=== PATIENT | male | born 1945 | race African-American/Black ===

== ENCOUNTER 2017-06-28 09:57 | Emergency (ER) | payer OTHER ==
[~2017-06-28] VITALS: Ht 175.3 cm; Wt 76.0 kg
[~2017-06-28 09:57] MED LIST: ALBU6.7H INH; LISI40TA PO; SLOW50TA PO
[2017-06-28 09:59] VITALS: BP 184/112; PULSE 108; RESP 15; TEMP 99.4; O2SAT 95
--- NOTE | 2017-06-28 11:12 | PD ---
HPI . right leg pain Chief Complaint: Pain: Acute or Chronic Time Seen by Provider: 11:12 Travel History International Travel<30 days: No Contact w/Intl Traveler<30days: No Traveled to known affect area: No History of Present Illness HPI 71 yr old male with HTN and DM [facility]. Patient says he has been experiencing pain in his right leg for over 2 weeks, however the pain has been worsening over the past few days. PFSH Past Medical History Cancer: Yes Cardiovascular Problems: Yes Diabetes: Yes Hypertension: Yes Reproductive: Yes (PROSTATE CA) Past Surgical History Other Surgery: Yes (PROSTATECTOMY) Social History Alcohol Use: Yes (OCCASIONALY) Tobacco Use: No Allergies-Medications (Allergen,Severity, Reaction): Coded Allergies: No Known Allergies (Verified , 06/28/17) Reported Meds & Prescriptions Reported Meds & Active Scripts Active Tramadol (Tramadol HCl) 50 Mg Tab 50 Mg PO Q8H PRN Reported Aspirin 81 Mg Chew 81 Mg CHEW DAILY Amlodipine (Amlodipine Besylate) 5 Mg Tab 5 Mg PO DAILY Lantus Inj (Insulin Glargine) 1,000 Unit/10 Ml Vial 30 Units SQ HS Review of Systems General / Constitutional: No: Fever Eyes: No: Visual changes HENT: No: Headaches Cardiovascular: No: Chest Pain or Discomfort Respiratory: No: Shortness of Breath Gastrointestinal: No: Abdominal Pain Genitourinary: No: Dysuria Musculoskeletal: Positive: Pain (right leg pain) Skin: No Rash Neurologic: No: Weakness Psychiatric: No: Depression Endocrine: No: Polydipsia Hematologic/Lymphatic: No: Easy Bruising Physical Exam Narrative GENERAL: AAO x 3, no acute distress, Well-nourished, well-developed patient. SKIN: Warm and dry. No visible rashes or bruising. HEAD: Normocephalic and atraumatic. EYES: No scleral icterus. No injection or drainage. ENT: No nasal drainage noted. Mucous membranes pink. Airway patent. NECK: Supple, trachea midline. No JVD. CARDIOVASCULAR: Regular rate and rhythm without murmurs, gallops, or rubs. RESPIRATORY: Breath sounds equal bilaterally. No accessory muscle use. No rhonchi or rales. GASTROINTESTINAL: Abdomen soft, non-tender, nondistended. EXTREMITIES: No cyanosis or edema. palpable mass in right groin that is tender to touch and firm, right leg moves normally with passive ROM. no edema. BACK: No obvious deformity. No CVA tenderness. 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 b/l, UE and LE 5/5, no focal deficits PSYCH: AAO x 3, flat affect Data Data Last Documented VS Vital Signs Date Time Temp Pulse Resp B/P (MAP) Pulse Ox O2 Delivery O2 Flow Rate FiO2 06/28/17 12:40 06/28/17 12:38 75 16 96 06/28/17 09:59 99.4 Orders Orders Hip, Uni(Ap&Lat) W Ap Pelvis (06/28/17 11:17) Complete Blood Count With Diff (06/28/17 11:17) Basic Metabolic Panel (Bmp) (06/28/17 11:17) Creatine Kinase (Cpk) (06/28/17 11:17) Us Leg Venous Doppler (06/28/17 11:17) Ketorolac Inj (Toradol Inj) (06/28/17 12:00) Labs Laboratory Tests Test 06/28/17 11:30 White Blood Count 13.9 TH/MM3 Red Blood Count 5.36 MIL/MM3 Hemoglobin 14.4 GM/DL Hematocrit 44.5 % Mean Corpuscular Volume 83.1 FL Mean Corpuscular Hemoglobin 26.9 PG Mean Corpuscular Hemoglobin Concent 32.4 % Red Cell Distribution Width 13.8 % Platelet Count 322 TH/MM3 Mean Platelet Volume 9.1 FL Neutrophils (%) (Auto) 85.7 % Lymphocytes (%) (Auto) 7.9 % Monocytes (%) (Auto) 6.1 % Eosinophils (%) (Auto) 0.2 % Basophils (%) (Auto) 0.1 % Neutrophils # (Auto) 12.0 TH/MM3 Lymphocytes # (Auto) 1.1 TH/MM3 Monocytes # (Auto) 0.9 TH/MM3 Eosinophils # (Auto) 0.0 TH/MM3 Basophils # (Auto) 0.0 TH/MM3 CBC Comment AUTO DIFF Differential Total Cells Counted 100 Neutrophils % (Manual) 73 % Band Neutrophils % 10 % Lymphocytes % 11 % Monocytes % 6 % Neutrophils # (Manual) 11.5 TH/MM3 Differential Comment FINAL DIFF MANUAL Platelet Estimate NORMAL Platelet Morphology Comment NORMAL Blood Urea Nitrogen 18 MG/DL Creatinine 1.26 MG/DL Random Glucose 232 MG/DL Calcium Level 9.4 MG/DL Sodium Level 133 MEQ/L Potassium Level 3.6 MEQ/L Chloride Level 97 MEQ/L Carbon Dioxide Level 27.5 MEQ/L Anion Gap 9 MEQ/L Estimat Glomerular Filtration Rate 68 ML/MIN Total Creatine Kinase 180 U/L MDM Medical Decision Making Medical Screen Exam Complete: Yes Emergency Medical Condition: Yes Medical Record Reviewed: Yes Differential Diagnosis OA, RA, less likely hip fracture, sciatica, DVT, Narrative Course 71-year-old here with right leg pain. On examination there are no gross abnormality is. I have ordered a Doppler to rule out DVT. Also checked an x-ray to rule out any type of fracture in the hip as this is where most of his pain is. He reported some generalized aches and pains so I ordered a CK. Last Impressions Lower Extremity Ultrasound 06/28/17 1117 Signed Impressions: Service Date/Time: Wednesday, June 28, 2017 11:30 - CONCLUSION: 1. No evidence for DVT. 2. Not mentioned above an area of patient discomfort right groin region is a heterogeneous 5.9 x 4.5 x 4 3 cm mixed echotexture mass without increased blood flow on color Doppler imaging. A solid mass versus complex fluid collection may have this appearance. Homero Mcdowell MD Laboratory Tests Test 06/28/17 11:30 White Blood Count 13.9 TH/MM3 Red Blood Count 5.36 MIL/MM3 Hemoglobin 14.4 GM/DL Hematocrit 44.5 % Mean Corpuscular Volume 83.1 FL Mean Corpuscular Hemoglobin 26.9 PG Mean Corpuscular Hemoglobin Concent 32.4 % Red Cell Distribution Width 13.8 % Platelet Count 322 TH/MM3 Mean Platelet Volume 9.1 FL Neutrophils (%) (Auto) 85.7 % Lymphocytes (%) (Auto) 7.9 % Monocytes (%) (Auto) 6.1 % Eosinophils (%) (Auto) 0.2 % Basophils (%) (Auto) 0.1 % Neutrophils # (Auto) 12.0 TH/MM3 Lymphocytes # (Auto) 1.1 TH/MM3 Monocytes # (Auto) 0.9 TH/MM3 Eosinophils # (Auto) 0.0 TH/MM3 Basophils # (Auto) 0.0 TH/MM3 CBC Comment AUTO DIFF Differential Total Cells Counted 100 Neutrophils % (Manual) 73 % Band Neutrophils % 10 % Lymphocytes % 11 % Monocytes % 6 % Neutrophils # (Manual) 11.5 TH/MM3 Differential Comment FINAL DIFF MANUAL Platelet Estimate NORMAL Platelet Morphology Comment NORMAL Blood Urea Nitrogen 18 MG/DL Creatinine 1.26 MG/DL Random Glucose 232 MG/DL Calcium Level 9.4 MG/DL Sodium Level 133 MEQ/L Potassium Level 3.6 MEQ/L Chloride Level 97 MEQ/L Carbon Dioxide Level 27.5 MEQ/L Anion Gap 9 MEQ/L Estimat Glomerular Filtration Rate 68 ML/MIN Total Creatine Kinase 180 U/L I reviewed all of the findings. I discussed with my attending Dr. Valencia. There is slightly elevated WBC, but likely reactive in nature. I do not suspect infection. He has no complaints of fever, chills, etc. I recommend patient follow up with his primary care provider for outpatient workup. He does have a history of prostate cancer and appears that he may have a mass in his right groin and possible metastatic lesion. I've discussed this with him. Patient and his significant other verbalized understanding and need for further workup. In the meantime I provided him with some tramadol for pain relief. Toradol was given here in the emergency department and patient's pain improved. He was ambulatory prior to discharge. I have provided him with the results of his test for further workup. Patient verbalized understanding of instructions, questions were answered, and thanked me for their care. I advised them if their condition worsens, please return to the nearest emergency room for further care. Diagnosis Primary Impression: Right leg pain Patient Instructions: General Instructions Additional Instructions: Please return to emergency department if your symptoms return or worsen. Follow up with your primary care provider. Take medications as prescribed. Please follow-up with her primary care provider to discuss your test results. I 've provided with a copy of these results. Med/Other Pt SpecificInfo: Prescription(s) given Scripts Tramadol (Tramadol) 50 Mg Tab 50 MG PO Q8H Y for PAIN, #12 TAB 0 Refills Prov: Ulysses Valencia MD 06/28/17 Disposition: 01 DISCHARGE HOME Condition: Stable ReddDina sun FANNY Jun 28, 2017 11:12
[2017-06-28] MEDS ORDERED: LANTUS2P SQ (11:21)
[2017-06-28] MEDS ORDERED: AMLO5TAB2 PO (11:21)
[2017-06-28] MEDS ORDERED: ASPI81CH CHEW (11:21)
[2017-06-28 11:42] LABS: BASOPHIL % 0.1 % (0.0-2.0); EOSINOPHIL % 0.2 % (0.0-4.0); HEMATOCRIT 44.5 % (39.0-51.0); LYMPH % 7.9 % (9.0-44.0); LYMPHOCYTE # 1.1 TH/MM3 (1.0-4.8); MEAN CELL VOLUME 83.1 FL (80.0-100.0); MEAN CORPUSCULAR HEMOGLOBIN 26.9 PG (27.0-34.0); MEAN CORPUSCULAR HGB CONC 32.4 % (32.0-36.0); MONO % 6.1 % (0.0-8.0); NEUT % 85.7 % (16.0-70.0); PLATELET COUNT 322 TH/MM3 (150-450); RED BLOOD COUNT 5.36 MIL/MM3 (4.50-5.90); RED CELL DISTRIBUTION WIDTH 13.8 % (11.6-17.2); WHITE BLOOD COUNT 13.9 TH/MM3 (4.0-11.0)
[2017-06-28 11:44] LABS: HEMO FLAGS AUTO DIFF
[2017-06-28] MEDS ORDERED: KETOROLAC TROMETHAMINE 60 MG/2 ML (IM) VIAL IM ONE (12:00)
--- NOTE | 2017-06-28 12:07 | RADRPT ---
EXAM DATE/TIME: 06/28/2017 11:30 [facility] COMPARISON: No previous studies available for comparison. INDICATIONS : Right leg pain. MEDICAL HISTORY : Hypertension. Glaucoma. CVA. Prostate cancer. Diabetes. SURGICAL HISTORY : Prostatectomy. ENCOUNTER: Initial ACUITY: 2 weeks PAIN SCORE: 3/10 LOCATION: Right leg TECHNIQUE: Venous ultrasound of the leg was performed from the inguinal ligament to the proximal calf. Real-pinky e, color Doppler and spectral tracing, compression and augmentation techniques were used. FINDINGS: There is normal compressibility of the deep venous system from the inguinal region to the proximal ca lf. No echogenic clot is seen in the lumen of the common femoral, femoral, popliteal, and posterior tibial veins. There is a normal response of the venous system to proximal and distal augmentation an d respiration. CONCLUSION: 1. No evidence for DVT. 2. Not mentioned above an area of patient discomfort right groin region is a heterogeneous 5.9 x 4.5 x 4 3 cm mixed echotexture mass without increased blood flow on color Doppler imaging. A solid mass v ersus complex fluid collection may have this appearance. Homero Mcdowell MD on June 28, 2017 at 12:05 Board Certified Radiologist. This report was verified electronically.
[2017-06-28 12:18] LABS: BICARBONATE 27.5 MEQ/L (21.0-32.0); POTASSIUM 3.6 MEQ/L (3.5-5.1)
[2017-06-28 12:21] LABS: BANDS 10 % (0-6); NEUTROPHIL # MANUAL DIFF 11.5 TH/MM3 (1.8-7.7); PLATELET ESTIMATE SMEAR NORMAL (NORMAL); PLATELET MORPHOLOGY NORMAL (NORMAL); POLYS (SEG NEUTROPHILS) 73 % (16-70); SCAN/DIFF FINAL DIFF MANUAL; WBC DIFF SAMPLE 100
--- NOTE | 2017-06-28 12:27 | RADRPT ---
EXAM DATE/TIME: 06/28/2017 12:11 [facility] COMPARISON: No previous studies available for comparison. INDICATIONS : Pain in right hip and groin for 10 days, denies injury MEDICAL HISTORY : Carcinoma, prostatic. diabetic SURGICAL HISTORY : Prostatectomy. ENCOUNTER: Initial ACUITY: 1 week PAIN SCORE: 9/10 LOCATION: Right hip FINDINGS: Numerous surgical clips are present within the pelvis. Vascular calcifications are noted overlying sc rotum. There is [id number] narrowing of both hip joint spaces. 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 No fracture or dislocation. There is sclerosis of the right superior pubic ramus and inferior pubi c ramus which is nonspecific. CONCLUSION: Sclerosis is seen at the right superior and inferior pubic rami. The possibility of a metastatic lesi on is difficult to exclude in this patient with history of prostate cancer. Osteoarthritis is noted. Homero Mcdowell MD on June 28, 2017 at 12:24 Board Certified Radiologist. This report was verified electronically.
[2017-06-28] MEDS ORDERED: TRAM50TA PO (12:30)
[2017-06-28 12:38] VITALS: BP 156/79; PULSE 75; RESP 16; O2SAT 96
[2017-07-28] MEDS ORDERED: DOCU1CAP21 PO (03:46)
[2017-07-28] MEDS ORDERED: ASPI81CH CHEW (03:46)
== END 2017-06-28 12:46 | disposition home or self-care (01) ==
LOC: NEPD 09:57
DX: M79.604 Pain in right leg (principal); M79.1 Myalgia; D72.829 Elevated white blood cell count, unspecified; R93.8 Abnormal findings on diagnostic imaging of other specified body structures; I10 Essential (primary) hypertension; E11.9 Type 2 diabetes mellitus without complications; Z79.4 Long term (current) use of insulin; Z85.46 Personal history of malignant neoplasm of prostate; Z86.79 Personal history of other diseases of the circulatory system
CPT/HCPCS: 73502; 80048; 82550; 85007; 85027; 93971; 96372; 99285; J1885

== ENCOUNTER 2017-06-30 10:58 | Emergency (ER) | payer OTHER ==
[~2017-06-30] VITALS: Ht 172.7 cm; Wt 75.0 kg
[2017-06-30 10:58] VITALS: BP 160/96; PULSE 101; RESP 20; TEMP 99.1; O2SAT 95
[~2017-06-30 10:58] MED LIST changes: +AMLO5TAB2 PO; +ASPI81CH CHEW; +LANTUS2P SQ; +TRAM50TA PO
--- NOTE | 2017-06-30 11:15 | PD ---
Physical Exam Time Seen by Provider: 11:14 Narrative 71 y/o male here with R leg pain, unrelieved with tramadol. Seen here on 06/28 about this issue. Vital signs reviewed. Seen at triage desk. Awaiting bed placement. Data Data Last Documented VS Vital Signs Date Time Temp Pulse Resp B/P (MAP) Pulse Ox O2 Delivery O2 Flow Rate FiO2 06/30/17 10:58 99.1 101 20 160/96 (117) 95 Room Air [facility] Medical Record Reviewed: Yes Supervised Visit with JOSIAS: Nicanor Lord Jun 30, 2017 11:15
[2017-06-30] MEDS ORDERED: PERC5TAB12 PO (11:49)
[2017-06-30] MEDS ORDERED: KETOROLAC TROMETHAMINE 60 MG/2 ML (IM) VIAL IM ONE (12:00)
--- NOTE | 2017-06-30 12:01 | PD ---
HPI . Right leg pain Chief Complaint: Injury Time Seen by Provider: 11:41 Travel History International Travel<30 days: No Contact w/Intl Traveler<30days: No Traveled to known affect area: No History of Present Illness HPI 71-year-old male presents to the emergency department for evaluation of right leg pain. Patient was seen at our facility 2 days ago with the same complaint. During that evaluation the patient had an ultrasound of his right leg, an x- ray of his right leg and blood work. There was no acute findings, however there was evidence of metastatic disease from his prostate cancer. Patient was given instructions at that time to follow up with his primary care. Patient was given a Toradol IM shot and a prescription for tramadol. Patient states these medications were not effective. Patient states nothing about the patient has changed in nature. It is neither worse or better. Patient denies any chest pain, shortness breath, nausea, vomiting, diarrhea, abdominal pain, lightheadedness, cough, fevers or malaise. PFSH Past Medical History Cancer: Yes (prostate ) Cardiovascular Problems: Yes Cerebrovascular Accident: Yes (12/2016) Diabetes: Yes Patient Takes Glucophage: No Diminished Hearing: No Hypertension: Yes Reproductive: Yes (PROSTATE CA) Tetanus Vaccination: < 5 Years Influenza Vaccination: Yes Past Surgical History Other Surgery: Yes (PROSTATECTOMY) Social History Alcohol Use: No Tobacco Use: No Substance Use: No Allergies-Medications (Allergen,Severity, Reaction): Coded Allergies: No Known Allergies (Verified , 06/30/17) Reported Meds & Prescriptions Reported Meds & Active Scripts Active Percocet (Oxycodone-Acetaminophen) 5-325 mg Tab 1-2 Tab PO Q6H PRN Tramadol (Tramadol HCl) 50 Mg Tab 50 Mg PO Q8H PRN Reported Aspirin 81 Mg Chew 81 Mg CHEW DAILY Amlodipine (Amlodipine Besylate) 5 Mg Tab 5 Mg PO DAILY Lantus Inj (Insulin Glargine) 1,000 Unit/10 Ml Vial 30 Units SQ HS Review of Systems Except as stated in HPI: all other systems reviewed are Neg Musculoskeletal: Positive: Pain (right leg ) Physical Exam Narrative GENERAL: Well-nourished well-developed 71-year-old male in no acute distress SKIN: Focused skin assessment warm/dry. HEAD: Atraumatic. Normocephalic. EYES: Pupils equal and round. No scleral icterus. No injection or drainage. ENT: No nasal bleeding or discharge. Mucous membranes pink and moist. NECK: Trachea midline. No JVD. CARDIOVASCULAR: Regular rate and rhythm. No murmur appreciated. RESPIRATORY: No accessory muscle use. Clear to auscultation. Breath sounds equal bilaterally. GASTROINTESTINAL: Abdomen soft, non-tender, nondistended. Hepatic and splenic margins not palpable. MUSCULOSKELETAL: No obvious deformities. No clubbing. No cyanosis. No edema. NEUROLOGICAL: Awake and alert. No obvious cranial nerve deficits. Motor grossly within normal limits. Normal speech. PSYCHIATRIC: Appropriate mood and affect; insight and judgment normal. Data Data Last Documented VS Vital Signs Date Time Temp Pulse Resp B/P (MAP) Pulse Ox O2 Delivery O2 Flow Rate FiO2 06/30/17 11:24 96 18 06/30/17 10:58 99.1 160/96 (117) 95 Room Air Orders Orders Ketorolac Inj (Toradol Inj) (06/30/17 12:00) [facility] Medical Decision Making Medical Screen Exam Complete: Yes Emergency Medical Condition: Yes Medical Record Reviewed: Yes Differential Diagnosis Differential diagnosis include but are not limited to chronic pain exacerbation , DVT, right leg muscle strain, metastatic disease Narrative Course Well nourished well-developed 71-year-old male presents to the emergency department for evaluation of right leg pain. Patient was seen at our facility of 2 days ago with the same complaint. At that time the patient was worked up with an ultrasound of the right leg, x-ray to the right leg and blood work. There are no acute findings. Patient was given an IM injection of Toradol and a prescription to go home with tramadol. The patient is back today because those medications were ineffective to control his pain. Patient will be given another IM injection of Toradol and a prescription for Percocet. Based on symptoms, clinical appearance, vital sign review and physical exam it is not necessary to admit the patient to the hospital or to keep patient in the emergency department for further workup. Patient will be discharged home with instructions to follow up with his primary care regarding concern for his metastatic disease from the findings from his imaging and ultrasound 2 days ago. Diagnosis Primary Impression: Right leg pain Referrals: Primary Care Physician Patient Instructions: General Instructions, Leg Pain (ED) Additional Instructions: Please return to emergency department if your symptoms return or worsen. Follow up with your primary care provider. Take medications as prescribed. Use caution as Percocet his narcotic and can make you drowsy. Do not drink alcohol or drive while using this medication. Med/Other Pt SpecificInfo: Prescription(s) given Scripts Oxycodone-Acetaminophen (Percocet) 5-325 mg Tab 1-2 TAB PO Q6H Y for PAIN, #10 TAB 0 Refills Prov: Vinicius Crespo MD 06/30/17 Disposition: 01 DISCHARGE HOME Condition: Stable Marissa Mcclendon Jun 30, 2017 12:01
[2017-07-28] MEDS ORDERED: DOCU1CAP21 PO (03:46)
[2017-07-28] MEDS ORDERED: ASPI81CH CHEW (03:46)
== END 2017-06-30 12:20 | disposition home or self-care (01) ==
LOC: NEPD 10:58
DX: M79.604 Pain in right leg (principal); E11.9 Type 2 diabetes mellitus without complications; I10 Essential (primary) hypertension; Z79.4 Long term (current) use of insulin; Z85.46 Personal history of malignant neoplasm of prostate; Z86.79 Personal history of other diseases of the circulatory system
CPT/HCPCS: 96372; 99284; J1885

== ENCOUNTER 2017-07-27 21:49 | Observation (INO) | payer MEDICARE, OTHER ==
[~2017-07-27] VITALS: Ht 170.2 cm; Wt 75.0 kg
[~2017-07-27 21:49] MED LIST changes: -ALBU6.7H INH; +ASPI-516 CHEW; -ASPI81CH CHEW; -LISI40TA PO; +PERC5TAB12 PO; -SLOW50TA PO
[2017-07-28 03:29] VITALS: BP 148/85; PULSE 82; RESP 18; TEMP 98.4; O2SAT 98
[2017-07-28] MEDS ORDERED: TIMO0.5S30 EACH EYE (03:46)
[2017-07-28] MEDS ORDERED: ENOX40IN SQ (03:46)
[2017-07-28] MEDS ORDERED: ASPI-516 CHEW (03:46)
[2017-07-28] MEDS ORDERED: LACT1CAP30 PO (03:46)
[2017-07-28] MEDS ORDERED: ATOR20TA15 PO (03:46)
[2017-07-28] MEDS ORDERED: CEFE2INJ2 IV (03:46)
[2017-07-28] MEDS ORDERED: FOLI400T PO (03:46)
[2017-07-28] MEDS ORDERED: DAKI0.12 TOPICAL (03:46)
[2017-07-28] MEDS ORDERED: MAPA325T PO (03:46)
[2017-07-28] MEDS ORDERED: DORZ2SOL RIGHT EYE (03:46)
[2017-07-28] MEDS ORDERED: BRIM0.2S4 EACH EYE (03:46)
[2017-07-28] MEDS ORDERED: DOCU50CA9 PO (03:46)
[2017-07-28] MEDS ORDERED: LANTUS2P SQ (03:46)
[2017-07-28] MEDS ORDERED: LATA0.002 EACH EYE (03:46)
[2017-07-28] MEDS ORDERED: VANC1.252 IV (03:46)
[2017-07-28] MEDS ORDERED: NORC5TAB PO (03:46)
[2017-07-28] MEDS ORDERED: AMLO5TAB2 PO (03:46)
[2017-07-28] MEDS ORDERED: NALOXONE HCL 0.4 MG/ML AMP IV PUSH PRN (04:30)
[2017-07-28 07:31] VITALS: BP 152/81; PULSE 93; RESP 17; TEMP 98.7; O2SAT 96
[2017-07-28] MEDS ORDERED: DEXTROSE 50% IN WATER 50 ML VIAL(D50) IV PUSH PRN (08:15)
[2017-07-28] MEDS ORDERED: GLUCAGON 1 MG/ML VIAL OTHER PRN (08:15)
--- NOTE | 2017-07-28 09:08 | HHI.HP ---
HPI Service [facility] Hospitalists Primary Care Physician Unknown Admission Diagnosis Diagnoses: Chief Complaint: Groin infection Travel History International Travel<30 Days: No Contact w/Intl Traveler <30 Da: No Traveled to Known Affected Are: No History of Present Illness Written by Daniel Tillman, acting as scribe for Dr. Dozier on 07/28/17 at 09:08. This note was transcribed by anders Tillman PA-C. I, Dr. Raffaele Dozier personally performed the history, physical exam, and medical decision making; and confirmed the accuracy of the information in the transcribed note. Authenticated by Dr. Raffaele Dozier on 07/28/17 at 16:52. 71-year-old male with a past medical history of CVA, HTN, HLD, DM, prostate cancer history, glaucoma who was transferred here from [facility]. The patient states he went to the ED here about a month ago and was found to have some masses around his thigh and scrotum. [facility] and was seen by urology with I&D of the peritoneum, 2 pubic masses removed, and drains placed(now removed); perineal infection was thought to be related to retained fragments of previous urethral sling that was removed in 2008. He was transferred to [facility] for treatment of MRSA bacteremia and was treated with IV daptomycin. He was then transferred to [facility] for orthopedic evaluation for possible osteomyelitis of the acetabulum seen on MRI. Orthopedics evaluated the patient at [facility] and determined no need for surgical intervention at the time. The patient was seen by ID and has been on IV vancomycin and cefepime awaiting cultures from [facility]. The PICC line is placed, the patient will likely need 6-8 weeks of IV antibiotics. Per hospital discharge summary the plan was to transfer [place] as this is where the patient lives and to de-escalate IV antibiotics based on culture results. Patient's at bedside state that he is here because he lives in [facility] and the plan is to do IV antibiotics at home, awaiting arrangement. The patient initially presented with right leg and thigh pain from the infection , which she states has improved. He denies any fevers or chills. They do state that he had 2 echocardiograms and a SOMMER and deny any signs of heart infection. Review of Systems Except as stated in HPI: all other systems reviewed are Neg Past Family Social History Past Medical History CVA Hypertension Hyperlipidemia History of prostate cancer in 2000 Diabetes mellitus Glaucoma Past Surgical History Prostate surgery and bladder sling placement and removal Right thigh and perineum drainage tubes placed and removed recently 2 peroneal masses removed recently Reported Medications Reported Meds & Active Scripts Active Percocet (Oxycodone-Acetaminophen) 5-325 mg Tab 1-2 Tab PO Q6H PRN Tramadol (Tramadol HCl) 50 Mg Tab 50 Mg PO Q8H PRN Reported Vanco 1.25 gm/250 ml-0.9% NaCl (Vancomycin/0.9 % Sod Chloride) 1.25 Gram/250 Ml Plast..bag IV BID Timolol Opth Drops 0.5 % Soln 1 Drop EACH EYE BID Dakins Solution Quarter Strength Topical (Sodium Hypochlorite Topical) 0.125% Soln 473 Ml TOPICAL BID Latanoprost Opth Drops (Latanoprost) 0.005% Drops 1 Drop EACH EYE HS Refrigerate until opened. Acidophilus Lactobacilli (Lactobacillus Acidophilus) 500 Million Cell Capsule 1 Cap PO BID Lantus Inj (Insulin Glargine) 1,000 Unit/10 Ml Vial 20 Units SQ HS Folic Acid 0.4 Mg Tab 400 Mcg PO DAILY Enoxaparin Inj (Enoxaparin Sodium) 40 Mg/0.4 Ml Syr 40 Mg SQ DAILY Dorzolamide Opth Drops (Dorzolamide HCl) 2% Soln 1 Drop RIGHT EYE BID Colace Clear (Docusate Sodium) 50 Mg Cap Cap PO BID Cefepime Inj (Cefepime HCl) 2 Gm/100 Ml Bagp 2 Gm IV Q8H Brimonidine Opth Drops (Brimonidine Tartrate) 0.2% Soln 1 Drop EACH EYE TID Atorvastatin (Atorvastatin Calcium) 20 Mg Tab 20 Mg PO HS Aspirin 81 Mg Chew 81 Mg CHEW DAILY Amlodipine (Amlodipine Besylate) 5 Mg Tab 5 Mg PO DAILY Terrell (Hydrocodone-Acetaminophen) 5-325 mg Tab 1 Tab PO Q6H PRN Mapap (Acetaminophen) 325 Mg Tab 325 Mg PO Q4-6H Aspirin 81 Mg Chew 81 Mg CHEW DAILY Amlodipine (Amlodipine Besylate) 5 Mg Tab 5 Mg PO DAILY Lantus Inj (Insulin Glargine) 1,000 Unit/10 Ml Vial 30 Units SQ HS Allergies: Coded Allergies: No Known Allergies (Verified , 06/30/17) Active Ordered Medications Current Medications Medications (Trade) Dose Ordered Sig/Caitlyn Route Start Time Stop Time Status Last Admin (NS Flush) 2 ml UNSCH PRN IV FLUSH 07/28/17 04:30 (NS Flush) 2 ml BID IV FLUSH 07/28/17 09:00 (Narcan Inj) 0.4 mg UNSCH PRN IV PUSH 07/28/17 04:30 (Norvasc) 5 mg DAILY PO 07/28/17 09:00 (Aspirin Chew) 81 mg DAILY CHEW 07/28/17 09:00 (Lipitor) 20 mg HS PO 07/28/17 21:00 (Alphagan 0.2% Opth Soln) 1 drop TID EACH EYE 07/28/17 10:00 (Trusopt 2% Opth Soln) 1 drop BID RIGHT EYE 07/28/17 10:00 (Terrell 5-325 Mg) 1 tab Q6H PRN PO 07/28/17 08:15 (Levemir Inj) 20 units HS SQ 07/28/17 21:00 (Xalatan 0.005% Opth Soln) 1 drop HS EACH EYE 07/28/17 21:00 (Dakin'S 0.125% Soln) 473 ml BID TOPICAL 07/28/17 09:00 UNV (Timoptic 0.5% Opth Soln) 1 drop BID EACH EYE 07/28/17 10:00 (Lactinex) 1 tab BID PO 07/28/17 09:30 (D50w (Vial) Inj) 50 ml UNSCH PRN IV PUSH 07/28/17 08:15 (Glucagon Inj) 1 mg UNSCH PRN OTHER 07/28/17 08:15 (NovoLOG SUPPLEMENTAL SCALE) 1 ACHS SLIDING SCALE SQ 07/28/17 12:00 Family History Cancer, diabetes, high blood pressure Social History Denies alcohol or tobacco use Physical Exam Vital Signs Vital Signs Date Time Temp Pulse Resp B/P (MAP) Pulse Ox O2 Delivery O2 Flow Rate FiO2 07/28/17 07:31 98.7 93 17 152/81 (104) 96 07/28/17 03:29 98.4 82 18 148/85 (106) 98 Physical Exam GENERAL: Well-developed well-nourished. In no acute distress. SKIN: Warm and dry. Open lesion below the scrotum with no signs of infection. Sutures in place on areas of previous drains on the right thigh. HEENT: Normocephalic. Pupils equal and round. Mucous membranes pink and moist. CARDIOVASCULAR: Regular rate and rhythm. No murmur appreciated. RESPIRATORY: No accessory muscle use. Clear to auscultation. Breath sounds equal bilaterally. GASTROINTESTINAL: Abdomen soft, non-tender, nondistended. Bowel sounds x4. MUSCULOSKELETAL: No obvious deformities. Right thigh with no induration, warmth , or tenderness. No clubbing or cyanosis. No edema. NEUROLOGICAL: Awake and alert. No focal neurological deficits. Moves upper and lower extremities spontaneously. Normal speech. PSYCHIATRIC: Appropriate mood and affect; insight and judgment normal. Caprini VTE Risk Assessment Caprini VTE Risk Assessment: Mod/High Risk (score >= 2) Caprini Risk Assessment Model Point Value = 1 Point Value = 2 Point Value = 3 Point Value = 5 Age 41-60 Minor surgery BMI > 25 kg/m2 Swollen legs Varicose veins or History of unexplained or recurrent spontaneous Oral contraceptives or hormone replacement Sepsis (< 1 month) Serious lung disease, including pneumonia (< 1 month) Abnormal pulmonary function Acute myocardial infarction Congestive heart failure (< 1 month) History of inflammatory bowel disease Medical patient at bed rest Age 61-74 Arthroscopic surgery Major open surgery (> 45 min) Laparoscopic surgery (> 45 min) Malignancy Confined to bed (> 72 hours) Immobilizing plaster cast Central venous access Age >= 75 History of VTE Family history of VTE Factor V Leiden Prothrombin [id number] Lupus anticoagulant Anticardiolipin antibodies Elevated serum homocysteine Heparin-induced thrombocytopenia Other congenital or acquired thrombophilia Stroke (< 1 month) Elective arthroplasty Hip, pelvis, or leg fracture Acute spinal cord injury (< 1 month) Prophylaxis Regimen Total Risk Factor Score Risk Level Prophylaxis Regimen 0-1 Low Early ambulation 2 Moderate Order ONE of the following: *Sequential Compression Device (SCD) *Heparin 5000 units SQ BID 3-4 Higher Order ONE of the following medications: *Heparin 5000 units SQ TID *Enoxaparin/Lovenox 40 mg SQ daily (WT < 150 kg, CrCl > 30 mL/min) *Enoxaparin/Lovenox 30 mg SQ daily (WT < 150 kg, CrCl > 10-29 mL/min) *Enoxaparin/Lovenox 30 mg SQ BID (WT < 150 kg, CrCl > 30 mL/min) AND/OR *Sequential Compression Device (SCD) 5 or more Highest Order ONE of the following medications: *Heparin 5000 units SQ TID (Preferred with Epidurals) *Enoxaparin/Lovenox 40 mg SQ daily (WT < 150 kg, CrCl > 30 mL/min) *Enoxaparin/Lovenox 30 mg SQ daily (WT < 150 kg, CrCl > 10-29 mL/min) *Enoxaparin/Lovenox 30 mg SQ BID (WT < 150 kg, CrCl > 30 mL/min) AND *Sequential Compression Device (SCD) Assessment and Plan Assessment and Plan 71-year-old male with a past medical history of CVA, HTN, HLD, DM, prostate cancer history, glaucoma who was transferred here from [facility] after prolonged hospitalization with complex right thigh and perineal infection. S/P right thigh myositis, abscess, right hip septic arthritis and osteomyelitis. History of recent MRSA bacteremia. No report of positive wound cultures. -Attempt to obtain recent culture results -Repeat blood cultures -Patient has been on IV antibiotics with vancomycin and cefepime, continue for now -Consult ID for transition to home IV antibiotics based on culture results -Check labs today Perineal wound: Has been seen by wound care physician at previous hospitalization. -Continue dressings with Dakin solution -Consult palliative senior np -Continue pain control with Terrell Diabetes mellitus: -Continue home Levemir -Monitor Accu-Cheks and cover with SSI as needed Other chronic medical conditions include HTN, HLD, CVA: -Continue home antihypertensives, statin, and aspirin DVT prophylaxis: Lovenox Discussed Condition With Patient with at bedside, Daniel Blackwell Jul 28, 2017 09:08 Eliel Dozier DO Jul 28, 2017 16:53
[2017-07-28] MEDS ORDERED: Vancomycin Consult Pharmacy 1 EA OTHER SCH (09:30)
[2017-07-28] MEDS: DORZOLAMIDE 2% OPTH SOLN 200 DROP/10 ML BTLO RIGHT EYE SCH ×2 (10:38→21:00)
[2017-07-28] MEDS: TIMOLOL MALEATE 0.5% OPHT SOLN 5 ML BTL EACH EYE SCH ×2 (10:38→21:00)
[2017-07-28] MEDS: BRIMONIDINE TARTRATE 0.2% OPHT SOLN 5 ML BTL EACH EYE SCH ×3 (10:38→18:30)
[2017-07-28] MEDS: ASPIRIN 81 MG CHEW TAB CHEW SCH (10:39)
[2017-07-28] MEDS: amLODIPine BESYLATE 5 MG TAB PO SCH (10:40)
[2017-07-28] MEDS: SODIUM CHLORIDE 0.9% FLUSH 10 ML FLUSH IV FLUSH SCH ×2 (10:40→21:38)
[2017-07-28] MEDS: ACETAMINOPHEN/HYDROcodone 325 MG/5 MG TAB PO PRN ×2 (10:40→21:36)
[2017-07-28] MEDS ORDERED: VANCOMYCIN INJ 1,500 MG in SODIUM CHLORID 0.9% 500 ML INJ 500 ML IV ONE (12:00)
[2017-07-28] MEDS ORDERED: CEFEPIME 2000 MG VIAL IV SCH (12:00)
[2017-07-28 12:22] LABS: AUTOMATED NEUTROPHIL # 2.8 TH/MM3 (1.8-7.7); EOSINOPHIL # 0.2 TH/MM3 (0-0.4); EOSINOPHIL % 3.6 % (0.0-4.0); HEMATOCRIT 25.4 % (39.0-51.0); HEMO FLAGS DIFF FINAL; LYMPH % 23.1 % (9.0-44.0); MEAN CELL VOLUME 82.6 FL (80.0-100.0); MEAN CORPUSCULAR HEMOGLOBIN 26.6 PG (27.0-34.0); MEAN CORPUSCULAR HGB CONC 32.3 % (32.0-36.0); MONO % 9.2 % (0.0-8.0); NEUT % 63.1 % (16.0-70.0); PLATELET COUNT 474 TH/MM3 (150-450); RED BLOOD COUNT 3.08 MIL/MM3 (4.50-5.90); RED CELL DISTRIBUTION WIDTH 16.6 % (11.6-17.2); WHITE BLOOD COUNT 4.4 TH/MM3 (4.0-11.0)
[2017-07-28 13:02] LABS: BICARBONATE 26.1 MEQ/L (21.0-32.0); POTASSIUM 3.9 MEQ/L (3.5-5.1)
[2017-07-28] MEDS: LACTOBACILLUS ACIDOPHILUS TAB PO SCH ×2 (13:14→21:35)
[2017-07-28] MEDS: ENOXAPARIN SODIUM 40 MG/0.4 ML SYRINGE SQ SCH (13:15)
[2017-07-28] MEDS: CEFEPIME 2000 MG/NS 100 ML IV SCH ×4 (13:32→21:39)
[2017-07-28] MEDS: INSULIN ASPART SUPPLEMENTAL SCALE SQ SCH ×3 (13:45→21:37)
[2017-07-28] MEDS: SODIUM HYPOCHLORITE 0.125% 500 ML BTL TOPICAL SCH ×2 (18:30→21:38)
[2017-07-28 20:55] VITALS: BP 138/83; PULSE 94; RESP 17; TEMP 98.9; O2SAT 95
[2017-07-28] MEDS ORDERED: INSULIN DETEMIR 100 UNITS/ML VIAL SQ SCH (21:00)
[2017-07-28] MEDS: LATANOPROST 0.005% OPHT SOLN 2.5 ML BTL EACH EYE SCH (21:00)
[2017-07-28] MEDS: ATORVASTATIN 20 MG TAB PO SCH (21:35)
[2017-07-28 23:58] VITALS: BP 145/89; PULSE 85; RESP 17; TEMP 98.9; O2SAT 98
[2017-07-29] MEDS: VANCOMYCIN INJ 1,500 MG in SODIUM CHLORID 0.9% 500 ML INJ 500 ML IV SCH ×2 (03:15→15:38)
[2017-07-29] MEDS: SODIUM CHLORIDE 0.9% FLUSH 10 ML FLUSH IV FLUSH PRN ×2 (03:16→06:15)
[2017-07-29 03:51] VITALS: BP 149/86; PULSE 91; RESP 17; TEMP 98.4; O2SAT 94
[2017-07-29] MEDS: CEFEPIME 2000 MG/NS 100 ML IV SCH ×4 (06:15→14:51)
[2017-07-29 07:24] LABS: AUTOMATED NEUTROPHIL # 1.9 TH/MM3 (1.8-7.7); BASOPHIL # 0.1 TH/MM3 (0-0.2); BASOPHIL % 1.4 % (0.0-2.0); EOSINOPHIL # 0.2 TH/MM3 (0-0.4); EOSINOPHIL % 3.8 % (0.0-4.0); HEMATOCRIT 25.7 % (39.0-51.0); HEMO FLAGS DIFF FINAL; LYMPHOCYTE # 1.6 TH/MM3 (1.0-4.8); MEAN CELL VOLUME 82.3 FL (80.0-100.0); MEAN CORPUSCULAR HEMOGLOBIN 26.7 PG (27.0-34.0); MEAN CORPUSCULAR HGB CONC 32.5 % (32.0-36.0); MONO % 13.3 % (0.0-8.0); NEUT % 44.5 % (16.0-70.0); PLATELET COUNT 444 TH/MM3 (150-450); RED BLOOD COUNT 3.12 MIL/MM3 (4.50-5.90); RED CELL DISTRIBUTION WIDTH 16.9 % (11.6-17.2); WHITE BLOOD COUNT 4.3 TH/MM3 (4.0-11.0)
[2017-07-29 08:05] LABS: BICARBONATE 26.6 MEQ/L (21.0-32.0); POTASSIUM 3.5 MEQ/L (3.5-5.1)
[2017-07-29 08:41] VITALS: BP 137/79; PULSE 92; RESP 22; TEMP 98; O2SAT 99
[2017-07-29] MEDS: BRIMONIDINE TARTRATE 0.2% OPHT SOLN 5 ML BTL EACH EYE SCH ×3 (09:47→18:10)
[2017-07-29] MEDS: TIMOLOL MALEATE 0.5% OPHT SOLN 5 ML BTL EACH EYE SCH ×2 (09:47→21:00)
[2017-07-29] MEDS: DORZOLAMIDE 2% OPTH SOLN 200 DROP/10 ML BTLO RIGHT EYE SCH ×2 (09:47→21:00)
[2017-07-29] MEDS: LACTOBACILLUS ACIDOPHILUS TAB PO SCH (09:48)
[2017-07-29] MEDS: amLODIPine BESYLATE 5 MG TAB PO SCH (09:48)
[2017-07-29] MEDS: ACETAMINOPHEN/HYDROcodone 325 MG/5 MG TAB PO PRN ×2 (09:49→17:10)
[2017-07-29] MEDS: SODIUM CHLORIDE 0.9% FLUSH 10 ML FLUSH IV FLUSH SCH (09:49)
[2017-07-29] MEDS: SODIUM HYPOCHLORITE 0.125% 500 ML BTL TOPICAL SCH (09:49)
[2017-07-29] MEDS: ASPIRIN 81 MG CHEW TAB CHEW SCH (09:49)
[2017-07-29] MEDS: INSULIN ASPART SUPPLEMENTAL SCALE SQ SCH ×4 (09:50→21:00)
[2017-07-29] MEDS: ENOXAPARIN SODIUM 40 MG/0.4 ML SYRINGE SQ SCH (12:06)
[2017-07-29 12:21] VITALS: BP 125/79; PULSE 82; RESP 20; TEMP 97.6; O2SAT 98
--- NOTE | 2017-07-29 13:04 | PD.WCN.NOT ---
Wound Consult Description: Received consult for wound management of R thigh and perineum Communicated with: RODRIGO Cornelius H pod Recommendation: Please continue to pack wound with 1/4 strength dakin's moistened gauze and cover with dry gauze secured with patient's anatomy and briefs. Change dressing BID.Please apply skin protectant to periwound Additional Information: Patient seen in H pod for evaluation of wound management of R thigh and perineum wound. Dressing was applied this morning to perineal area per wound care p. Patient able to turn self to L side for wound assessment. pulled down briefs in place, scrotum was lifted up to reveal gauze packing in place to perineal area.Removed gauze packing to reveal wound that presents with 100% red granulation tissue and scant sero-sanguinous drainage that is without odor. Wound measures ~2.8cm x ~2.4cm x ~0.8cm.Repacked wound with 1/4 strength Dakin' s moistened gauze.Periwound is unremarkable moisture cream is being applied to periwound. R thigh wound presents as a surgical wound that is well approximated with ~5 sutures Periwound is is slightly erythematous.Per patient surgery was done approximately 3 weeks ago on the R groin area. R leg presents with trace edema. Patient will need sutures removed, and recommend to continue wound care of Dakin 's 1/4 strength moistened gauze to wound bed as ordered by patient's out patient wound care physician. Elizabeth Quispe [facility] Jul 29, 2017 13:04
--- NOTE | 2017-07-29 13:17 | HHI.PR ---
Subjective Remarks Follow-up for right sided thigh myositis, abscess, right hip septic arthritis and osteomyelitis, perineum wound. Patient is currently doing well. Resting in bed. No fever or chills. is at bedside. Objective Vitals Vital Signs Date Time Temp Pulse Resp B/P (MAP) Pulse Ox O2 Delivery O2 Flow Rate FiO2 07/29/17 12:21 97.6 82 20 125/79 (94) 98 07/29/17 08:41 98.0 92 22 137/79 (98) 99 07/29/17 03:51 98.4 91 17 149/86 (107) 94 07/28/17 23:58 98.9 85 17 145/89 (107) 98 07/28/17 20:55 98.9 94 17 138/83 (101) 95 I/O 07/28/17 07/28/17 07/28/17 07/29/17 07/29/17 07/29/17 07:00 15:00 23:00 07:00 15:00 23:00 Intake Total 150 ml Output Total 1200 ml 900 ml Balance -1050 ml -900 ml Intake Oral 150 ml Output Urine Total 1200 ml 900 ml # Voids 2 Result Diagram: 07/29/1760407/29/17604 Objective Remarks GENERAL: Alert, oriented 3, NAD. SKIN: Warm and dry. Open lesion below the scrotum with no signs of infection. Sutures in place on areas of previous drains on the right thigh. HEAD: Normocephalic. EYES: No scleral icterus. No injection or drainage. NECK: Supple, trachea midline. No JVD or lymphadenopathy. CARDIOVASCULAR: Regular rate and rhythm without murmurs, gallops, or rubs. RESPIRATORY: Breath sounds equal bilaterally. No accessory muscle use. GASTROINTESTINAL: Abdomen soft, non-tender, nondistended. MUSCULOSKELETAL: No cyanosis, or edema. BACK: Nontender without obvious deformity. No CVA tenderness. Procedures None A/P Assessment and Plan 71-year-old male with a past medical history of CVA, HTN, HLD, DM, prostate cancer history, glaucoma who was transferred here from [facility] after prolonged hospitalization with complex right thigh and perineal infection. S/P right thigh myositis, abscess, right hip septic arthritis and osteomyelitis. History of recent MRSA bacteremia. No report of positive wound cultures. -Attempt to obtain recent culture results -Repeat blood cultures -Patient has been on IV antibiotics with vancomycin and cefepime, continue for now -Consult ID for transition to home IV antibiotics based on culture results -Labs reviewed. Perineal wound: Has been seen by wound care physician at previous hospitalization. -Continue dressings with Dakin solution -Consult trim and burr operator -Continue pain control with [place] Diabetes mellitus: -Continue home Levemir 10 units QHS. -Monitor Accu-Cheks and cover with SSI as needed Other chronic medical conditions include HTN, HLD, CVA: -Continue home antihypertensives, statin, and aspirin DVT prophylaxis: Lovenox Discussed with Dr. Haider. We do have some of the documents from [facility]. We will specifically request records related to microbiology, pathology, imaging, surgery or procedure notes, infectious disease notes and discharge summary as well as admission note. Eliel Dozier DO Jul 29, 2017 1:17 pm
--- NOTE | 2017-07-29 15:15 | PD.ID.CON ---
History of Present Illness Service ID Consult Requested By Reason for Consult Evaluation and Mment of Osteomyelitis right hip, pubuc ramus abscess, abscess right thigh, MRSA bacteremia. Pt transferred from [facility]. Primary Care Physician Unknown Diagnoses: History of Present Illness is a 71 y/o AAM with PMHx of CVA, HTN, HLD, DM, prostate cancer history , glaucoma who was transferred here from [facility]. The patient states he came to the ED here about a month ago and was found to have some masses around his thigh and scrotum. [facility] and was seen by urology with I&D of the peritoneum, 2 pubic masses removed, and drains placed (now removed); perineal infection was thought to be related to retained fragments of previous urethral sling that was removed in 2008. He was transferred to [facility] for treatment of MRSA bacteremia and was treated with IV daptomycin. He was then transferred to [facility] for orthopedic evaluation for possible osteomyelitis of the acetabulum seen on MRI. Orthopedics evaluated the patient at [facility] and determined no need for surgical intervention at the time. The patient was seen by ID and has been on IV vancomycin and cefepime awaiting cultures from [facility]. The PICC line is placed, the patient will likely need 6-8 weeks of IV antibiotics. Per hospital discharge summary the plan was to transfer [place] as this is where the patient lives and to de-escalate IV antibiotics based on culture results. Patient's at bedside state that he is here because he lives in [facility] and the plan is to do IV antibiotics at home, awaiting arrangement. The patient initially presented with right leg and thigh pain from the infection, which she states has improved. He denies any fevers or chills. They do state that he had 2 echocardiograms and a SOMMER and deny any signs of heart infection. Upon review of medical records no microbiology cultures on chart, no ID note in chart. Unsure what cultures were being treated as pt was on Dapto at one point. Would like to know Vanco LINDSAY on MRSA cultures in blood. Gave a list of items needed from outside hospital to help formulate an ID plan. Need Micro, path, radiology, ID notes, discharge notes, procedure or surgery notes if any. Marquise Wallis who has requested these to be obtained from hospitals he has been at. Patient reports a PICC line was placed 2 days prior to his discharge from [facility] hospital. He reports using a walker at baseline prior to all the infectious process started. Evaluation and Mment of Osteomyelitis right hip, pubuc ramus abscess, abscess right thigh, MRSA bacteremia. Pt transferred from [facility]. Review of Systems ROS Limitations: Poor Historian Constitutional: DENIES: Diaphoretic episodes, Fatigue, Fever, Weight gain, Weight loss, Chills, Dizziness, Change in appetite, Night Sweats Endocrine: DENIES: Heat/cold intolerance, Polydipsia, Polyuria, Polyphagia Eyes: DENIES: Blurred vision, Diplopia, Eye inflammation, Eye pain, Vision loss , Photosensitivity, Double Vision Ears, nose, mouth, throat: DENIES: Tinnitus, Hearing loss, Vertigo, Nasal discharge, Oral lesions, Throat pain, Hoarseness, Ear Pain, Running Nose, Epistaxis, Sinus Pain, Toothache, Odynophagia Respiratory: DENIES: Apneas, Cough, Snoring, Wheezing, Hemoptysis, Sputum production, Shortness of breath Cardiovascular: DENIES: Chest pain, Palpitations, Syncope, Dyspnea on Exertion , PND, Lower Extremity Edema, Orthopnea, Claudication Gastrointestinal: DENIES: Abdominal pain, Black stools, Bloody stools, Constipation, Diarrhea, Nausea, Vomiting, Difficulty Swallowing, Anorexia Genitourinary: DENIES: Sexual dysfunction, Urinary frequency, Urinary incontinence, Urgency, Hematuria, Dysuria, Nocturia, Penile Discharge, Testicular Pain, Testicular Swelling Musculoskeletal: DENIES: Joint pain, Muscle aches, Stiffness, Joint Swelling, Back pain, Neck pain Integumentary: DENIES: Abnormal pigmentation, Nail changes, Pruritus, Rash Hematologic/lymphatic: DENIES: Bruising, Lymphadenopathy Immunologic/allergic: DENIES: Eczema, Urticaria Neurologic: DENIES: Abnormal gait, Headache, Localized weakness, Paresthesias, Seizures, Speech Problems, Tremor, Poor Balance Psychiatric: DENIES: Anxiety, Confusion, Mood changes, Depression, Hallucinations, Agitation, Suicidal Ideation, Homicidal Ideation, Delusions Past Family Social History Allergies: Coded Allergies: No Known Allergies (Verified , 06/30/17) Past Medical History CVA Hypertension Hyperlipidemia History of prostate cancer in 2000 Diabetes mellitus Glaucoma Past Surgical History Prostate surgery and bladder sling placement and removal Right thigh and perineum drainage tubes placed and removed recently 2 peroneal masses removed recently Reported Medications I attest I reviewed, obtained or updated patients home meds and current meds. Reported Meds & Active Scripts Active Percocet (Oxycodone-Acetaminophen) 5-325 mg Tab 1-2 Tab PO Q6H PRN Tramadol (Tramadol HCl) 50 Mg Tab 50 Mg PO Q8H PRN Reported Vanco 1.25 gm/250 ml-0.9% NaCl (Vancomycin/0.9 % Sod Chloride) 1.25 Gram/250 Ml Plast..bag IV BID Timolol Opth Drops 0.5 % Soln 1 Drop EACH EYE BID Dakins Solution Quarter Strength Topical (Sodium Hypochlorite Topical) 0.125% Soln 473 Ml TOPICAL BID Latanoprost Opth Drops (Latanoprost) 0.005% Drops 1 Drop EACH EYE HS Refrigerate until opened. Acidophilus Lactobacilli (Lactobacillus Acidophilus) 500 Million Cell Capsule 1 Cap PO BID Lantus Inj (Insulin Glargine) 1,000 Unit/10 Ml Vial 20 Units SQ HS Folic Acid 0.4 Mg Tab 400 Mcg PO DAILY Enoxaparin Inj (Enoxaparin Sodium) 40 Mg/0.4 Ml Syr 40 Mg SQ DAILY Dorzolamide Opth Drops (Dorzolamide HCl) 2% Soln 1 Drop RIGHT EYE BID Colace Clear (Docusate Sodium) 50 Mg Cap Cap PO BID Cefepime Inj (Cefepime HCl) 2 Gm/100 Ml Bagp 2 Gm IV Q8H Brimonidine Opth Drops (Brimonidine Tartrate) 0.2% Soln 1 Drop EACH EYE TID Atorvastatin (Atorvastatin Calcium) 20 Mg Tab 20 Mg PO HS Aspirin 81 Mg Chew 81 Mg CHEW DAILY Amlodipine (Amlodipine Besylate) 5 Mg Tab 5 Mg PO DAILY [place] (Hydrocodone-Acetaminophen) 5-325 mg Tab 1 Tab PO Q6H PRN Mapap (Acetaminophen) 325 Mg Tab 325 Mg PO Q4-6H Aspirin 81 Mg Chew 81 Mg CHEW DAILY Amlodipine (Amlodipine Besylate) 5 Mg Tab 5 Mg PO DAILY Lantus Inj (Insulin Glargine) 1,000 Unit/10 Ml Vial 30 Units SQ HS Active Ordered Medications Current Medications Medications (Trade) Dose Ordered Sig/Caitlyn Route Start Time Stop Time Status Last Admin (NS Flush) 2 ml UNSCH PRN IV FLUSH 07/28/17 04:30 07/29/17 06:15 (NS Flush) 2 ml BID IV FLUSH 07/28/17 09:00 07/29/17 09:49 (Narcan Inj) 0.4 mg UNSCH PRN IV PUSH 07/28/17 04:30 (Norvasc) 5 mg DAILY PO 07/28/17 09:00 07/29/17 09:48 (Aspirin Chew) 81 mg DAILY CHEW 07/28/17 09:00 07/29/17 09:49 (Lipitor) 20 mg HS PO 07/28/17 21:00 07/28/17 21:35 (Alphagan 0.2% Opth Soln) 1 drop TID EACH EYE 07/28/17 10:00 (Trusopt 2% Opth Soln) 1 drop BID RIGHT EYE 07/28/17 10:00 ([place] 5-325 Mg) 1 tab Q6H PRN PO 07/28/17 08:15 07/29/17 09:49 (Xalatan 0.005% Opth Soln) 1 drop HS EACH EYE 07/28/17 21:00 (Dakin'S 0.125% Soln) 500 ml BID TOPICAL 07/28/17 10:00 07/29/17 09:49 (Timoptic 0.5% Opth Soln) 1 drop BID EACH EYE 07/28/17 10:00 (Lactinex) 1 tab BID PO 07/28/17 09:30 07/29/17 09:48 (D50w (Vial) Inj) 50 ml UNSCH PRN IV PUSH 07/28/17 08:15 (Glucagon Inj) 1 mg UNSCH PRN OTHER 07/28/17 08:15 (NovoLOG SUPPLEMENTAL SCALE) 1 ACHS SLIDING SCALE SQ 07/28/17 12:00 07/28/17 21:37 (Lovenox Inj) 40 mg Q24H SQ 07/28/17 11:00 07/29/17 12:06 Pharmacy Profile Note 0 ml @ 0 mls/hr UNSCH OTHER 07/28/17 09:30 Cefepime HCl 2000 mg/Sodium Chloride 100 ml @ 200 mls/hr Q8H IV 07/28/17 14:00 07/29/17 14:51 Vancomycin HCl 1500 mg/Sodium Chloride 515 ml @ 250 mls/hr Q12H IV 07/29/17 03:00 07/29/17 15:38 Miscellaneous Information SPECIFIC LAB TO BE DRAWN:VANCOMYCIN TROUGH DATE TO... ONCE ONCE .XX 07/30/17 02:45 07/30/17 02:46 (Levemir Inj) 10 units HS SQ 07/29/17 21:00 Family History reviewed and NC to current ID problems. Social History Lives in [facility] with . Has no children. Denies alcohol, smoking , no drugs. 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 Physical Exam Vital Signs Vital Signs Date Time Temp Pulse Resp B/P (MAP) Pulse Ox O2 Delivery O2 Flow Rate FiO2 07/29/17 12:21 97.6 82 20 125/79 (94) 98 07/29/17 08:41 98.0 92 22 137/79 (98) 99 07/29/17 03:51 98.4 91 17 149/86 (107) 94 07/28/17 23:58 98.9 85 17 145/89 (107) 98 07/28/17 20:55 98.9 94 17 138/83 (101) 95 Physical Exam GENERAL: thin built AAM, well-developed patient, in no apparent distress. SKIN: No rashes, ecchymoses or lesions. Cool and dry. HEAD: Atraumatic. Normocephalic. No temporal or scalp tenderness. EYES: Pupils equal round and reactive. Extraocular motions intact. No scleral icterus. No injection or drainage. ENT: Nose without bleeding, purulent drainage or septal hematoma. Throat without erythema, tonsillar hypertrophy or exudate. Uvula midline. Airway patent. NECK: Trachea midline. Supple, nontender, no meningeal signs. CARDIOVASCULAR: Regular rate and rhythm without murmurs, gallops, or rubs. RESPIRATORY: Clear to auscultation. Breath sounds equal bilaterally. No wheezes , rales, or rhonchi. GASTROINTESTINAL: Abdomen soft, non-tender, nondistended. MUSCULOSKELETAL: Right thigh with linear scar with sutures on the inner thigh aspect. He has a small opening on the under side of his scrotum with small amount of packing noted. NEUROLOGICAL: Awake and alert. No obvious neuro deficit noted. Psych cooperative PICC site with no e.o infection. Laboratory Laboratory Tests Test 07/29/17 06:05 White Blood Count 4.3 Red Blood Count 3.12 Hemoglobin 8.3 Hematocrit 25.7 Mean Corpuscular Volume 82.3 Mean Corpuscular Hemoglobin 26.7 Mean Corpuscular Hemoglobin Concent 32.5 Red Cell Distribution Width 16.9 Platelet Count 444 Mean Platelet Volume 6.9 Neutrophils (%) (Auto) 44.5 Lymphocytes (%) (Auto) 37.0 Monocytes (%) (Auto) 13.3 Eosinophils (%) (Auto) 3.8 Basophils (%) (Auto) 1.4 Neutrophils # (Auto) 1.9 Lymphocytes # (Auto) 1.6 Monocytes # (Auto) 0.6 Eosinophils # (Auto) 0.2 Basophils # (Auto) 0.1 CBC Comment DIFF FINAL Differential Comment Blood Urea Nitrogen 9 Creatinine 0.63 Random Glucose 56 Calcium Level 8.6 Sodium Level 139 Potassium Level 3.5 Chloride Level 106 Carbon Dioxide Level 26.6 Anion Gap 6 Estimat Glomerular Filtration Rate 151 Date/Time Source Procedure Growth Status 07/28/17 11:47 Blood Peripheral Aerobic Blood Culture - Preliminary NO GROWTH IN 1 DAY Resulted 07/28/17 11:47 Blood Peripheral Anaerobic Blood Culture - Preliminary NO GROWTH IN 1 DAY Resulted Result Diagram: 07/29/1760407/29/17604 Imaging reviewed imaging results from [facility]. Assessment and Plan Assessment and Plan Osteomyelitis of right hip. Abscess of right thigh Pubic ramus abscess MRSA bacteremia at outside hospital. No endocarditis per reports or pt account of ECHO and SOMMER being negative. Prostate cancer PICC in place, placed at [facility]. Recs Continue Cefepime IV Continue Vanco IV (target 15-20) Follow [facility] reports as stated in HPI to formulate an ID plan. Follow clinically. PT/OT evaluation. Mariangel Haider MD Jul 29, 2017 15:15
[2017-07-29 15:58] VITALS: BP 133/81; PULSE 90; RESP 24; TEMP 99; O2SAT 98
[2017-07-29] MEDS ORDERED: INSULIN DETEMIR 100 UNITS/ML VIAL SQ SCH (21:00)
[2017-07-29] MEDS: LATANOPROST 0.005% OPHT SOLN 2.5 ML BTL EACH EYE SCH (21:00)
[2017-07-29 22:02] VITALS: BP 128/78; PULSE 86; RESP 19; TEMP 98.1; O2SAT 97
[2017-07-30] MEDS: SODIUM CHLORIDE 0.9% FLUSH 10 ML FLUSH IV FLUSH SCH ×3 (00:10→21:47)
[2017-07-30] MEDS: LACTOBACILLUS ACIDOPHILUS TAB PO SCH ×3 (00:11→21:47)
[2017-07-30] MEDS: ATORVASTATIN 20 MG TAB PO SCH ×2 (00:11→21:48)
[2017-07-30] MEDS: ACETAMINOPHEN/HYDROcodone 325 MG/5 MG TAB PO PRN ×4 (00:14→22:01)
[2017-07-30] MEDS: SODIUM HYPOCHLORITE 0.125% 500 ML BTL TOPICAL SCH ×3 (00:15→21:48)
[2017-07-30] MEDS: CEFEPIME 2000 MG/NS 100 ML IV SCH ×8 (00:15→21:49)
[2017-07-30 00:31] VITALS: BP 143/83; PULSE 84; RESP 16; TEMP 99; O2SAT 98
[2017-07-30] MEDS ORDERED: PHARMACY ORDERED LAB ONE (02:45)
[2017-07-30] MEDS: VANCOMYCIN INJ 1,500 MG in SODIUM CHLORID 0.9% 500 ML INJ 500 ML IV SCH (03:23)
[2017-07-30 05:24] VITALS: BP 144/84; PULSE 81; RESP 20; TEMP 98.5; O2SAT 95
[2017-07-30] MEDS: INSULIN ASPART SUPPLEMENTAL SCALE SQ SCH ×4 (08:00→21:00)
[2017-07-30] MEDS: BRIMONIDINE TARTRATE 0.2% OPHT SOLN 5 ML BTL EACH EYE SCH ×3 (08:10→18:00)
[2017-07-30] MEDS: DORZOLAMIDE 2% OPTH SOLN 200 DROP/10 ML BTLO RIGHT EYE SCH ×2 (08:10→21:00)
[2017-07-30] MEDS: TIMOLOL MALEATE 0.5% OPHT SOLN 5 ML BTL EACH EYE SCH ×2 (08:10→21:00)
[2017-07-30] MEDS: ASPIRIN 81 MG CHEW TAB CHEW SCH (08:13)
[2017-07-30] MEDS: amLODIPine BESYLATE 5 MG TAB PO SCH (08:14)
[2017-07-30 08:51] VITALS: BP 145/82; PULSE 74; RESP 24; TEMP 98.6; O2SAT 98
--- NOTE | 2017-07-30 09:50 | HHI.PR ---
Subjective Remarks Follow-up for thigh and perineal infections. The patient is doing well today. Sutures are removed from his thigh yesterday and it is feeling better. Discussed with RN, still awaiting records from [facility] regarding culture data. The patient's blood sugars have been low in the mornings, he states it's always been like this when he does not get an evening snack, discussed with RN to ensure we provide one. Objective Vitals Vital Signs Date Time Temp Pulse Resp B/P (MAP) Pulse Ox O2 Delivery O2 Flow Rate FiO2 07/30/17 08:51 98.6 74 24 145/82 (103) 98 07/30/17 08:08 18 07/30/17 05:24 98.5 81 20 144/84 (104) 95 07/30/17 00:31 99.0 84 16 143/83 (103) 98 07/29/17 22:02 98.1 86 19 128/78 (95) 97 07/29/17 15:58 99.0 90 24 133/81 (98) 98 07/29/17 12:21 97.6 82 20 125/79 (94) 98 I/O 07/29/17 07/29/17 07/29/17 07/30/17 07/30/17 07/30/17 07:00 15:00 23:00 07:00 15:00 23:00 Intake Total 150 ml 480 ml Output Total 1200 ml 900 ml 450 ml Balance -1050 ml -900 ml 480 ml -450 ml Intake Oral 150 ml 480 ml Output Urine Total 1200 ml 900 ml 450 ml # Voids 2 6 # Bowel Movements 2 Result Diagram: 07/29/1760407/29/17604 Objective Remarks GENERAL: Well-developed well-nourished. In no acute distress. SKIN: Warm and dry. Open lesion below the scrotum with no signs of infection. Sutures removed from areas of previous drains on the right thigh. HEENT: Normocephalic. Pupils equal and round. Mucous membranes pink and moist. CARDIOVASCULAR: Regular rate and rhythm. No murmur appreciated. RESPIRATORY: No accessory muscle use. Clear to auscultation. Breath sounds equal bilaterally. GASTROINTESTINAL: Abdomen soft, non-tender, nondistended. Bowel sounds x4. MUSCULOSKELETAL: No obvious deformities. Right thigh with no induration, warmth , or tenderness. No clubbing or cyanosis. No edema. NEUROLOGICAL: Awake and alert. No focal neurological deficits. Moves upper and lower extremities spontaneously. Normal speech. PSYCHIATRIC: Appropriate mood and affect; insight and judgment normal. Procedures None A/P Assessment and Plan 71-year-old male with a past medical history of CVA, HTN, HLD, DM, prostate cancer history, glaucoma who was transferred here from [facility] after prolonged hospitalization with complex right thigh and perineal infection. S/P right thigh myositis, abscess, right hip septic arthritis and osteomyelitis. History of recent MRSA bacteremia. No reports available of previous wound cultures. -Repeat blood cultures with NGTD -Patient has been on IV antibiotics with vancomycin and cefepime, continue for now -ID consulted for assistance with transition to home IV antibiotics based on culture results -Continue attempts to obtain recent culture data Perineal wound: Has been seen by wound care physician at previous hospitalization. -Consulted track walker, discussed with, continue local wound care and dressings with Dakin solution -Continue pain control with [place] Diabetes mellitus: With episodes of a.m. hypoglycemia. Patient reports this is because he has not been getting an evening snack. -Evening snack and diabetic diet -Previous on Lantus 30 units at night. Continue to decrease Levemir to 5 units at night for now until a.m. hypoglycemia improves. -Check hemoglobin A1c -Monitor Accu-Cheks and cover with SSI as needed Other chronic medical conditions include HTN, HLD, CVA: -Continue home antihypertensives, statin, and aspirin DVT prophylaxis: Lovenox Discharge Planning Discharge planning pending arrangement of home IV antibiotics. Will need home wound care as well. Case management consulted. Daniel Tillman Jul 30, 2017 09:50
[2017-07-30 12:33] VITALS: BP 154/87; PULSE 87; RESP 22; TEMP 97.6; O2SAT 99
[2017-07-30] MEDS: ENOXAPARIN SODIUM 40 MG/0.4 ML SYRINGE SQ SCH (13:18)
[2017-07-30 15:23] LABS: HEMOGLOBIN A1a 1.7 %; HEMOGLOBIN A1b 1.1 %; HEMOGLOBIN Ao 78.4 %; HEMOGLOBIN F 1.7 %; HEMOGLOBIN LA1C 2.2 %
[2017-07-30] MEDS: VANCOMYCIN 1,000 MG/NS 250 ML IV SCH ×2 (15:38)
[2017-07-30 16:20] VITALS: BP 138/83; PULSE 81; RESP 20; TEMP 97.6; O2SAT 98
[2017-07-30] MEDS: LATANOPROST 0.005% OPHT SOLN 2.5 ML BTL EACH EYE SCH (21:00)
[2017-07-30 21:23] VITALS: BP 131/65; PULSE 64; RESP 18; TEMP 98.1; O2SAT 98
[2017-07-30] MEDS: INSULIN DETEMIR 100 UNITS/ML VIAL SQ SCH (21:48)
[2017-07-31] VITALS: BP 126/68; PULSE 78; RESP 18; TEMP 98; O2SAT 98
[2017-07-31] MEDS: VANCOMYCIN 1,000 MG/NS 250 ML IV SCH ×6 (03:00→15:57)
[2017-07-31 03:24] VITALS: BP 133/82; PULSE 77; RESP 17; TEMP 98.1; O2SAT 98
[2017-07-31] MEDS: VANCOMYCIN INJ 1,500 MG in SODIUM CHLORID 0.9% 500 ML INJ 500 ML IV SCH (04:05)
[2017-07-31 07:30] VITALS: BP 138/81; PULSE 80; RESP 18; TEMP 98.1; O2SAT 98
[2017-07-31] MEDS: CEFEPIME 2000 MG/NS 100 ML IV SCH ×6 (07:45→22:22)
--- NOTE | 2017-07-31 08:31 | HHI.PR ---
Subjective Remarks Follow-up for infections and diabetes. Patient is doing well today. He just woke up and has some pain in his right thigh. He states he always has pain there whenever he wakes up and the pain medicine relieves it. No fever or chills. Blood sugar was much better this morning. Discussed with RN and charge nurse at length, still attempting to obtain records. Discussed with ID yesterday, awaiting records and cultures with LINDSAY, can contact Dr. Haider when these are obtained. Reviewed previous ID note from [facility]. It seems the patient had MRSA bacteremia at [facility] at the end of June for which he has been on vancomycin and had wound culture positive for Pseudomonas at [facility] during early July for which he is on cefepime. It appears ID was awaiting outside cultures at [facility] as well. Objective Vitals Vital Signs Date Time Temp Pulse Resp B/P (MAP) Pulse Ox O2 Delivery O2 Flow Rate FiO2 07/31/17 07:30 98.1 80 18 138/81 (100) 98 07/31/17 03:24 98.1 77 17 133/82 (99) 98 07/31/17 00:00 98.0 78 18 126/68 (87) 98 07/30/17 21:23 98.1 64 18 131/65 (87) 98 07/30/17 16:48 18 07/30/17 16:20 97.6 81 20 138/83 (101) 98 07/30/17 12:33 97.6 87 22 154/87 (109) 99 07/30/17 08:51 98.6 74 24 145/82 (103) 98 I/O 07/30/17 07/30/17 07/30/17 07/31/17 07/31/17 07/31/17 07:00 15:00 23:00 07:00 15:00 23:00 Intake Total 100 ml 490 ml Output Total 750 ml Balance -650 ml 490 ml Intake Oral 240 ml IV Total 100 ml 250 ml Output Urine Total 750 ml # Voids 1 # Bowel Movements 1 Result Diagram: 07/29/1760407/29/17604 Objective Remarks GENERAL: Well-developed well-nourished. In no acute distress. SKIN: Warm and dry. Open lesion below the scrotum with no signs of infection. Sutures removed from areas of previous drains on the right thigh. HEENT: Normocephalic. Pupils equal and round. Mucous membranes pink and moist. CARDIOVASCULAR: Regular rate and rhythm. No murmur appreciated. RESPIRATORY: No accessory muscle use. Clear to auscultation. Breath sounds equal bilaterally. GASTROINTESTINAL: Abdomen soft, non-tender, nondistended. Bowel sounds x4. MUSCULOSKELETAL: No obvious deformities. Right thigh with no induration, warmth , or tenderness. No clubbing or cyanosis. No edema. NEUROLOGICAL: Awake and alert. No focal neurological deficits. Moves upper and lower extremities spontaneously. Normal speech. PSYCHIATRIC: Appropriate mood and affect; insight and judgment normal. Procedures None A/P Assessment and Plan 71-year-old male with a past medical history of CVA, HTN, HLD, DM, prostate cancer history, glaucoma who was transferred here from [facility] after prolonged hospitalization with complex right thigh and perineal infection. S/P right thigh myositis, abscess, right hip septic arthritis and osteomyelitis. History of recent MRSA bacteremia. No reports available of previous wound cultures. -Repeat blood cultures with NGTD -Patient has been on IV antibiotics with vancomycin and cefepime, continue for now -ID consulted for assistance with transition to home IV antibiotics based on culture results -Continue attempts to obtain recent culture data Perineal wound: Has been seen by wound care physician at previous hospitalization. -Consulted galvanizer zinc, discussed with, continue local wound care and dressings with Dakin solution -Continue pain control with [place] Diabetes mellitus: With episodes of a.m. hypoglycemia. Patient reports this is because he has not been getting an evening snack. Insulin decreased and a.m. blood sugar better today. -Evening snack and diabetic diet -Previous on Lantus 30 units at night. Decreased Levemir to 5 units at night for now until a.m. hypoglycemia improves. -Hemoglobin A1c 10.5 -Monitor Accu-Cheks and cover with SSI as needed Other chronic medical conditions include HTN, HLD, CVA: -Continue home antihypertensives, statin, and aspirin DVT prophylaxis: Lovenox Discharge Planning Discharge planning pending arrangement of home IV antibiotics. Will need home wound care as well. Case management consulted. Daniel Tillman Jul 31, 2017 08:31
[2017-07-31] MEDS: LACTOBACILLUS ACIDOPHILUS TAB PO SCH ×2 (08:56→22:17)
[2017-07-31] MEDS: SODIUM CHLORIDE 0.9% FLUSH 10 ML FLUSH IV FLUSH SCH ×2 (08:57→22:19)
[2017-07-31] MEDS: amLODIPine BESYLATE 5 MG TAB PO SCH (08:57)
[2017-07-31] MEDS: ASPIRIN 81 MG CHEW TAB CHEW SCH (08:57)
[2017-07-31] MEDS: ACETAMINOPHEN/HYDROcodone 325 MG/5 MG TAB PO PRN ×3 (08:57→22:18)
[2017-07-31] MEDS: TIMOLOL MALEATE 0.5% OPHT SOLN 5 ML BTL EACH EYE SCH ×2 (08:58→21:00)
[2017-07-31] MEDS: SODIUM HYPOCHLORITE 0.125% 500 ML BTL TOPICAL SCH ×2 (08:58→22:22)
[2017-07-31] MEDS: DORZOLAMIDE 2% OPTH SOLN 200 DROP/10 ML BTLO RIGHT EYE SCH ×2 (08:58→21:00)
[2017-07-31] MEDS: BRIMONIDINE TARTRATE 0.2% OPHT SOLN 5 ML BTL EACH EYE SCH ×3 (08:58→17:20)
[2017-07-31 11:15] VITALS: BP 106/68; PULSE 72; RESP 18; TEMP 98.8; O2SAT 100
[2017-07-31] MEDS: INSULIN ASPART SUPPLEMENTAL SCALE SQ SCH ×3 (12:00→22:21)
[2017-07-31] MEDS: ENOXAPARIN SODIUM 40 MG/0.4 ML SYRINGE SQ SCH ×2 (12:05→12:17)
[2017-07-31 15:02] VITALS: BP 116/65; PULSE 76; RESP 18; TEMP 98.5; O2SAT 98
[2017-07-31 20:01] VITALS: BP 128/75; PULSE 83; RESP 18; TEMP 98.7; O2SAT 97
[2017-07-31] MEDS: LATANOPROST 0.005% OPHT SOLN 2.5 ML BTL EACH EYE SCH (21:00)
[2017-07-31] MEDS: ATORVASTATIN 20 MG TAB PO SCH (22:17)
[2017-07-31] MEDS: INSULIN DETEMIR 100 UNITS/ML VIAL SQ SCH (22:21)
[2017-08-01 00:47] VITALS: BP 127/80; PULSE 71; RESP 18; TEMP 98.1; O2SAT 99
[2017-08-01] MEDS ORDERED: PHARMACY ORDERED LAB ONE ×2 (02:45→14:00)
[2017-08-01] MEDS: VANCOMYCIN 1,000 MG/NS 250 ML IV SCH ×4 (03:01→15:06)
[2017-08-01] MEDS: ACETAMINOPHEN/HYDROcodone 325 MG/5 MG TAB PO PRN ×2 (04:15→18:31)
[2017-08-01] MEDS: CEFEPIME 2000 MG/NS 100 ML IV SCH ×6 (06:33→20:15)
[2017-08-01 07:49] VITALS: BP 128/80; PULSE 76; RESP 16; TEMP 98.7; O2SAT 99
[2017-08-01] MEDS: INSULIN ASPART SUPPLEMENTAL SCALE SQ SCH ×4 (08:00→20:16)
--- NOTE | 2017-08-01 08:26 | HHI.PR ---
Subjective Remarks Follow-up for infections and diabetes. The patient is doing well today. His sugar was 102 this morning. He has no acute complaints. Records obtained from the [facility] which showed sensitivities for MRSA bacteremia, but no LINDSAY available. Records obtained from [facility] did not have any relevant culture data. ID physician there was awaiting cultures from outside facilities. Some records obtained from [facility], but no culture data received from there. There is a note from the hospitalist from there and possibly infectious disease that recommended treatment with cefepime for pseudomonal wound infection. Discussed at length with patient and at bedside as well as the charge nurse, will continue to attempt to obtain culture data from [facility]. Objective Vitals Vital Signs Date Time Temp Pulse Resp B/P (MAP) Pulse Ox O2 Delivery O2 Flow Rate FiO2 08/01/17 07:49 98.7 76 16 128/80 (96) 99 08/01/17 00:47 98.1 71 18 127/80 (96) 99 07/31/17 23:25 14 07/31/17 20:01 98.7 83 18 128/75 (92) 97 07/31/17 15:02 98.5 76 18 116/65 (82) 98 07/31/17 11:15 98.8 72 18 106/68 (81) 100 I/O 07/31/17 07/31/17 07/31/17 08/01/17 08/01/17 08/01/17 07:00 15:00 23:00 07:00 15:00 23:00 Intake Total 840 ml 720 ml Balance 840 ml 720 ml Intake Oral 840 ml 720 ml # Voids 2 2 Result Diagram: 07/29/17 0605 07/31/17 1321 Objective Remarks GENERAL: Well-developed well-nourished. In no acute distress. SKIN: Warm and dry. Open lesion below the scrotum with no signs of infection. Sutures removed from areas of previous drains on the right thigh. CARDIOVASCULAR: Regular rate and rhythm. No murmur appreciated. RESPIRATORY: No accessory muscle use. Clear to auscultation. Breath sounds equal bilaterally. GASTROINTESTINAL: Abdomen soft, non-tender, nondistended. Bowel sounds x4. MUSCULOSKELETAL: No obvious deformities. Right thigh with no induration, warmth , or tenderness. No clubbing or cyanosis. No edema. NEUROLOGICAL: Awake and alert. No focal neurological deficits. Moves upper and lower extremities spontaneously. Normal speech. PSYCHIATRIC: Appropriate mood and affect; insight and judgment normal. Procedures None A/P Assessment and Plan 71-year-old male with a past medical history of CVA, HTN, HLD, DM, prostate cancer history, glaucoma who was transferred here from [facility] after prolonged hospitalization with complex right thigh and perineal infection. S/P right thigh myositis, abscess, right hip septic arthritis and osteomyelitis. History of recent MRSA bacteremia. No reports available of previous wound cultures. -Repeat blood cultures with NGTD -Patient has been on IV antibiotics with vancomycin and cefepime, continue for now -ID consulted for assistance with transition to home IV antibiotics based on culture results -Continue attempts to obtain recent culture data Perineal wound: Has been seen by wound care physician at previous hospitalization. -Consulted pharmacy customer care specialist, discussed with, continue local wound care and dressings with Dakin solution -Continue pain control with [place] Diabetes mellitus: With episodes of a.m. hypoglycemia. Patient reports this is because he has not been getting an evening snack. Insulin decreased and blood sugars better with no hypoglycemia. -Evening snack and diabetic diet -Previous on Lantus 30 units at night. Decreased Levemir to 5 units at night for now until a.m. hypoglycemia improves. -Hemoglobin A1c 10.5 -Monitor Accu-Cheks and cover with SSI as needed Other chronic medical conditions include HTN, HLD, CVA: -Continue home antihypertensives, statin, and aspirin DVT prophylaxis: Lovenox Discharge Planning Discharge planning pending arrangement of home IV antibiotics. Will need home wound care as well. Case management consulted. Daniel Tillman Aug 01, 2017 08:26
[2017-08-01] MEDS: TIMOLOL MALEATE 0.5% OPHT SOLN 5 ML BTL EACH EYE SCH ×2 (09:00→20:16)
[2017-08-01] MEDS: DORZOLAMIDE 2% OPTH SOLN 200 DROP/10 ML BTLO RIGHT EYE SCH ×2 (09:00→20:16)
[2017-08-01] MEDS: BRIMONIDINE TARTRATE 0.2% OPHT SOLN 5 ML BTL EACH EYE SCH ×3 (09:00→17:24)
[2017-08-01] MEDS: LACTOBACILLUS ACIDOPHILUS TAB PO SCH ×2 (09:12→20:15)
[2017-08-01] MEDS: SODIUM HYPOCHLORITE 0.125% 500 ML BTL TOPICAL SCH ×2 (09:13→20:15)
[2017-08-01] MEDS: amLODIPine BESYLATE 5 MG TAB PO SCH (09:13)
[2017-08-01] MEDS: ASPIRIN 81 MG CHEW TAB CHEW SCH (09:13)
[2017-08-01] MEDS: SODIUM CHLORIDE 0.9% FLUSH 10 ML FLUSH IV FLUSH SCH ×2 (09:13→20:16)
[2017-08-01 11:29] VITALS: BP 151/85; PULSE 77; RESP 16; TEMP 99.1; O2SAT 97
[2017-08-01] MEDS: ENOXAPARIN SODIUM 40 MG/0.4 ML SYRINGE SQ SCH (13:55)
--- NOTE | 2017-08-01 14:07 | HHI.FF ---
Face to Face Verification Diagnosis: (1) MRSA bacteremia (2) Perineal abscess (3) DM (diabetes mellitus) Physical Therapy Order: Evaluate and Treat, Improve ambulation, Strength and gait training Home Health Nursing Order: Medical education Signs/symptoms of disease process Diabetic education Medication education-adverse effect Wound care and dressing changes Nursing assessment with vital signs IV medication administration Instructions: Continue daily wound care to perineum and right thigh with quarter strength Dakin's solution moistened gauze to wound bed. I have seen patient Giovanny ElliottJr on 08/01/17. My clinical findings support the need for the requested home health care services because: Limited ability to care for self Infection w/ risk of complications Injectable med education/admin I certify that my clinical findings support that this patient is homebound because: Unsteady gait/balance Need for psychosocial assistance Daniel Tillman Aug 01, 2017 14:07 Marie Villanueva MD Aug 01, 2017 14:12
[2017-08-01 15:04] VITALS: BP 131/75; PULSE 87; RESP 17; TEMP 98.9; O2SAT 98
[2017-08-01] MEDS: ATORVASTATIN 20 MG TAB PO SCH (20:15)
[2017-08-01] MEDS: INSULIN DETEMIR 100 UNITS/ML VIAL SQ SCH (20:16)
[2017-08-01 20:29] VITALS: BP 134/72; PULSE 67; RESP 18; TEMP 98.4; O2SAT 97
[2017-08-02] MEDS: CEFEPIME 2000 MG/NS 100 ML IV SCH ×6 (05:25→21:51)
[2017-08-02] MEDS: ACETAMINOPHEN/HYDROcodone 325 MG/5 MG TAB PO PRN ×3 (05:29→21:49)
[2017-08-02 05:47] VITALS: BP 134/80; PULSE 75; RESP 18; TEMP 98.1; O2SAT 99
--- NOTE | 2017-08-02 07:39 | HHI.DS ---
Discharge Summary Admission Date Jul 28, 2017 at 03:00 Discharge Date: Aug 02, 2017 Admitting Diagnosis (1) Right leg pain ICD Code: M79.604 - Pain in right leg Status: Acute (2) DM (diabetes mellitus) ICD Code: E11.9 - Type 2 diabetes mellitus without complications (3) Hip osteomyelitis ICD Code: M86.9 - Osteomyelitis, unspecified (4) Perineal abscess ICD Code: L02.215 - Cutaneous abscess of perineum (5) MRSA bacteremia ICD Code: R78.81 - Bacteremia (6) Pubic ramus osteomyelitis Procedures None Brief History - From Admission Written by Daniel Tillman, acting as scribe for Dr. Dozier on 07/28/17 at 09:08. This note was transcribed by kirstinibza Tillman PA-C. I, Dr. Raffaele Dozier personally performed the history, physical exam, and medical decision making; and confirmed the accuracy of the information in the transcribed note. Authenticated by Dr. Raffaele Dozier on 07/28/17 at 16:52. 71-year-old male with a past medical history of CVA, HTN, HLD, DM, prostate cancer history, glaucoma who was transferred here from [facility]. The patient states he went to the ED here about a month ago and was found to have some masses around his thigh and scrotum. [facility] and was seen by urology with I&D of the peritoneum, 2 pubic masses removed, and drains placed(now removed); perineal infection was thought to be related to retained fragments of previous urethral sling that was removed in 2008. He was transferred to [facility] for treatment of MRSA bacteremia and was treated with IV daptomycin. He was then transferred to [facility] for orthopedic evaluation for possible osteomyelitis of the acetabulum seen on MRI. Orthopedics evaluated the patient at [facility] and determined no need for surgical intervention at the time. The patient was seen by ID and has been on IV vancomycin and cefepime awaiting cultures from [facility]. The PICC line is placed, the patient will likely need 6-8 weeks of IV antibiotics. Per hospital discharge summary the plan was to transfer [place] as [place] is where the patient lives and to de-escalate IV antibiotics based on culture results. Patient's at bedside state that he is here because he lives in [facility] and the plan is to do IV antibiotics at home, awaiting arrangement. The patient initially presented with right leg and thigh pain from the infection , which she states has improved. He denies any fevers or chills. They do state that he had 2 echocardiograms and a SOMMER and deny any signs of heart infection. CBC/BMP: 07/29/17 0605 08/01/17 0813 Significant Findings Laboratory Tests Test 07/30/17 12:24 07/31/17 13:21 08/01/17 03:03 08/01/17 08:13 Hemoglobin A1c 10.5 % (4.3-6.0) Vancomycin Level Trough 21.9 MCG/ML (5.0-10.0) Test 08/01/17 14:00 Vancomycin Level Trough 22.0 MCG/ML (5.0-10.0) PE at Discharge GENERAL: Well-developed well-nourished. In no acute distress. SKIN: Warm and dry. Open lesion below the scrotum with no signs of infection. Sutures removed from areas of previous drains on the right thigh. CARDIOVASCULAR: Regular rate and rhythm. No murmur appreciated. RESPIRATORY: No accessory muscle use. Clear to auscultation. Breath sounds equal bilaterally. GASTROINTESTINAL: Abdomen soft, non-tender, nondistended. Bowel sounds x4. MUSCULOSKELETAL: No obvious deformities. Right thigh with no induration, warmth , or tenderness. No clubbing or cyanosis. No edema. NEUROLOGICAL: Awake and alert. No focal neurological deficits. Moves upper and lower extremities spontaneously. Normal speech. PSYCHIATRIC: Appropriate mood and affect; insight and judgment normal. Pt update on day of discharge Patient at the margin of the bed. Feels better. No fever or chills. No n/v/d/c. Patient says wounds are healing well. No pain. Feels comfortable to go home. Hospital Course 71-year-old male with a past medical history of CVA, HTN, HLD, DM, prostate cancer history, glaucoma who was transferred here from [facility] after prolonged hospitalization with complex right thigh and perineal infection. S/P right thigh myositis, abscess, right hip septic arthritis and osteomyelitis. History of recent MRSA bacteremia. Reports obtained and reviewed also made available to Dr Haider ID specialist Pubic ramus osteomyelitis (Organisms: PSAE and MRSA vanco LINDSAY <0.5) Hip bone osteomyelitis Scrotum abscess. Infective myositis of right thigh. Prostate cancer -Repeat blood cultures with [facility] -Patient has been on IV antibiotics with vancomycin and cefepime, continue for now -ID consulted for assistance with transition to home IV antibiotics based on culture results -Continue attempts to obtain recent culture data Discharge home on:, Cefepime 2 grams IV q 8 hours Start Treatment: Aug 02, 2017 Stop Treatment: Sep 10, 2017 Vancomycin 1 gram IV q 24 hours Pharmacy to adjust Vanco trough to 15-20 for osteomyelitis. Start Treatment: Aug 02, 2017 Stop Treatment: Sep 10, 2017 Labs as OP: CBC w/diff, Creatinine, CRP, LFT's (Hepatic function test), Vancomycin Trough (target trough 15-20 for osteomyelitis.) Perineal wound: Has been seen by wound care physician at previous hospitalization. -Consulted business manager college or university, discussed with, continue local wound care and dressings with Dakin solution -Continue pain control with S[place] Diabetes mellitus: With episodes of a.m. hypoglycemia. Patient reports this is because he has not been getting an evening snack. Insulin decreased and blood sugars better with no hypoglycemia. -Evening snack and diabetic diet -Previous on Lantus 30 units at night. Decreased Levemir to 5 units at night for now until a.m. hypoglycemia improves. -Hemoglobin A1c 10.5 -Monitor Accu-Cheks and cover with SSI as needed Other chronic medical conditions include HTN, HLD, CVA: -Continue home antihypertensives, statin, and aspirin DVT prophylaxis: Lovenox Discharge Planning Discharge home with home health in stable condition, wound care to follow as well. Cefepime 2 grams IV q 8 hours Start Treatment: Aug 02, 2017 Stop Treatment: Sep 10, 2017 Vancomycin 1 gram IV q 24 hours Pharmacy to adjust Vanco trough to 15-20 for osteomyelitis. Start Treatment: Aug 02, 2017 Stop Treatment: Sep 10, 2017 CBC w/diff, Creatinine, CRP, LFT's (Hepatic function test), Vancomycin Trough ( target trough 15-20 for osteomyelitis.) Pt Condition on Discharge: Stable Discharge Time: > 30 minutes Discharge Instructions DIET: Follow Instructions for: Heart Healthy Diet Activities you can perform: Regular-No Restrictions Follow up Referrals: Appointment for Follow Up - 1 Week [facility] with ID physician at [facility] or [phone] Per RODRIGO Bruno at [facility]. PCP Follow-up - [facility] New Medications: Cefepime Inj (Maxipime Inj) 2 Gram Inj 2 GM IV Q8H for PSAE infective myositis for 42 Days, VIAL 0 Refills Epinephrine Inj (Epinephrine Inj) 1 Mg/Ml (1 Ml) Inj 0.3 MG IV PUSH ONCE PRN for ALLERGIC REACTION, #1 VIAL Epinephrine Inj (Epinephrine Inj) 1 Mg/Ml (1 Ml) Inj 0.3 MG SQ ONCE PRN for ALLERGIC REACTION, #1 VIAL Give with any signs of respiratory distress. Hydrocortisone Inj (Solu-Cortef Inj) 250 Mg/2 Ml Inj 250 MG IV PUSH ONCE PRN for ALLERGIC REACTION, #1 VIAL 0 Refills Give over 30-60 seconds. Vancomycin Inj (Vancomycin Inj) 10 Gram Inj 1200 MG IV DAILY for MRSA bacteremia,myositis,osteo for 42 Days, VIAL Continued Medications: Acetaminophen (Mapap) 325 Mg Tab 325 MG PO Q4-6H, #2 TAB 0 Refills Amlodipine (Amlodipine) 5 Mg Tab 5 MG PO DAILY for Blood Pressure Management, #30 TAB 0 Refills Amlodipine (Amlodipine) 5 Mg Tab 5 MG PO DAILY for Blood Pressure Management, #30 TAB 0 Refills Aspirin (Aspirin) 81 Mg Chew 81 MG CHEW DAILY, TAB 0 Refills Aspirin (Aspirin) 81 Mg Chew 81 MG CHEW DAILY, TAB 0 Refills Atorvastatin (Atorvastatin) 20 Mg Tab 20 MG PO HS for Cholesterol Management, #30 TAB 0 Refills Brimonidine Opth Drops (Brimonidine Opth Drops) 0.2% Soln 1 DROP EACH EYE TID for Intraocular pressure, #1 BOTTLE 0 Refills Docusate Sodium (Colace Clear) 50 Mg Cap CAP PO BID for Constipation Dorzolamide Opth Drops (Dorzolamide Opth Drops) 2% Soln 1 DROP RIGHT EYE BID for Glaucoma, #1 BOTTLE 0 Refills Enoxaparin Inj (Enoxaparin Inj) 40 Mg/0.4 Ml Syr 40 MG SQ DAILY for Blood Clot Prevention, SYRINGE 0 Refills Folic Acid (Folic Acid) 0.4 Mg Tab 400 MCG PO DAILY for Nutritional Supplement, TAB 0 Refills Hydrocodone-Acetaminophen (Sylvania) 5-325 mg Tab 1 TAB PO Q6H PRN for PAIN, TAB 0 Refills Insulin Glargine Inj (Lantus Inj) 1,000 Unit/10 Ml Vial 30 UNITS SQ HS for Blood Sugar Management, VIAL 0 Refills Insulin Glargine Inj (Lantus Inj) 1,000 Unit/10 Ml Vial 20 UNITS SQ HS for Blood Sugar Management, VIAL 0 Refills Lactobacillus Acidophilus (Acidophilus Lactobacilli) 500 Million Cell Capsule 1 CAP PO BID Latanoprost Opth Drops (Latanoprost Opth Drops) 0.005% Drops 1 DROP EACH EYE HS for Glaucoma, #2.5 ML 0 Refills Refrigerate until opened. Oxycodone-Acetaminophen (Percocet) 5-325 mg Tab 1-2 TAB PO Q6H PRN for PAIN, #10 TAB 0 Refills Sodium Hypochlorite Topical (Dakins Solution Quarter Strength Topical) 0.125% Soln 473 ML TOPICAL BID for Infection, ML 0 Refills Timolol Opth Drops (Timolol Opth Drops) 0.5 % Soln 1 DROP EACH EYE BID for Glaucoma, #1 BOTTLE 0 Refills Tramadol (Tramadol) 50 Mg Tab 50 MG PO Q8H PRN for PAIN, #12 TAB 0 Refills Discontinued Medications: Cefepime Inj (Cefepime Inj) 2 Gm/100 Ml Bagp 2 GM IV Q8H for Infection, BAG 0 Refills Vancomycin/0.9 % Sod Chloride (Vanco 1.25 gm/250 ml-0.9% NaCl) 1.25 Gram/250 Ml Plast..bag IV BID for Infection Marie Villanueva MD Aug 02, 2017 07:39
[2017-08-02] MEDS: INSULIN ASPART SUPPLEMENTAL SCALE SQ SCH ×4 (08:00→21:00)
[2017-08-02 08:30] VITALS: PULSE 75; RESP 20; TEMP 97.2; O2SAT 96
[2017-08-02] MEDS ORDERED: PHARMACY ORDERED LAB ONE (08:45)
[2017-08-02] MEDS: BRIMONIDINE TARTRATE 0.2% OPHT SOLN 5 ML BTL EACH EYE SCH ×3 (09:00→18:00)
[2017-08-02] MEDS: DORZOLAMIDE 2% OPTH SOLN 200 DROP/10 ML BTLO RIGHT EYE SCH ×2 (09:00→21:50)
[2017-08-02] MEDS: TIMOLOL MALEATE 0.5% OPHT SOLN 5 ML BTL EACH EYE SCH ×2 (09:00→21:50)
[2017-08-02] MEDS: LACTOBACILLUS ACIDOPHILUS TAB PO SCH ×2 (10:27→21:49)
[2017-08-02] MEDS: amLODIPine BESYLATE 5 MG TAB PO SCH (10:28)
[2017-08-02] MEDS: SODIUM CHLORIDE 0.9% FLUSH 10 ML FLUSH IV FLUSH SCH ×2 (10:28→21:50)
[2017-08-02] MEDS: ASPIRIN 81 MG CHEW TAB CHEW SCH (10:29)
[2017-08-02] MEDS: ENOXAPARIN SODIUM 40 MG/0.4 ML SYRINGE SQ SCH (10:32)
[2017-08-02] MEDS: VANCOMYCIN 1,000 MG/NS 250 ML IV SCH ×2 (10:45)
[2017-08-02] MEDS: SODIUM HYPOCHLORITE 0.125% 500 ML BTL TOPICAL SCH ×2 (10:59→21:50)
--- NOTE | 2017-08-02 11:27 | HHI.FF ---
cc: Pati Francis MD Infusion Therapy Location of Infusion Therapy: Home Health Care IV Infusion Order Patient Information Appointment Date: Aug 02, 2017 Patient Weight 75 kg Diagnosis: Diagnosis Pubic ramus osteomyelitis (Organisms: PSAE and MRSA vanco LINDSAY <0.5) Hip bone osteomyelitis Scrotum abscess. Infective myositis of right thigh. Prostate cancer Coded Allergies: No Known Allergies (Verified , 06/30/17) Administer Medication Cefepime 2 grams IV q 8 hours Start Treatment: Aug 02, 2017 Stop Treatment: Sep 10, 2017 Administer Medication Vancomycin 1 gram IV q 24 hours Pharmacy to adjust Vanco trough to 15-20 for osteomyelitis. Start Treatment: Aug 02, 2017 Stop Treatment: Sep 10, 2017 Additional Information Venous access: PICC Line Additional Instructions [x] Peripheral flush and dressing changes per protocol [x] Implanted port and central gas line repairer: * Implanted port: 10 ml Normal Saline followed by 5 ml Heparin 100 units/ml Heparin flush after each use and monthly to maintain. [] May leave port accessed during therapy. [] May leave peripheral site accessed for duration of therapy. [x] If patient has SOB or respiratory distress, check oxygen saturation. If less than 90% or clinical signs of respiratory distress, administer oxygen at 2 L/min. via nasal cannula and notify physician. [x] Anaphylaxis/Reaction orders: * Stop infusion. * Keep IV line open with saline flush. * Notify physician. * Monitor vital signs every 15 minutes until symptoms resolve. * Check Oxygen saturation; Oxygen at 2 L/min. via nasal cannula if less than 90% or clinical signs of respiratory distress. * Administer diphenhydramine (Benadryl) 25 mg IV STAT, (unless patient has received as pre-med). May repeat once, if necessary. * Solu-Cortef 250 mg IVP over 30-60 seconds, use 100 mg vials for each dissolution. * Epinephrine (1mg/1 ml) 0.3 mg subcutaneously or IVP now with any signs of respiratory distress. * Check with physician for new additional pre-med orders if patient is re- challenged or re-treated. [x] May remove PICC line when treatment complete, after confirming with Physician. [x] If the patient is admitted to the hospital, the ED, or transferred via [facility] , complete transfer form including medication reconciliation order sheet. Laboratory Tests Weekly Labs: CBC w/diff, Creatinine, CRP, LFT's (Hepatic function test), Vancomycin Trough (target trough 15-20 for osteomyelitis.) Additional Information Please draw weekly labs, fax labs to number below and call with abnormals, change in clinical condition or problems to: ID physician at [facility] or [phone] Per RODRIGO Bruno at [facility]. Follow up appt: Patient to schedule follow up appt with Dr.Reba Francis within 2 weeks post discharge. Follow up with PCP Follow up with other MDs as planned. Counseling: Counseled about medication side effects Counseled about PICC line care and hand hygiene. Mariangel Haider MD Aug 02, 2017 11:27
[2017-08-02 11:42] VITALS: BP 131/78; PULSE 77; RESP 18; TEMP 98.8; O2SAT 98
--- NOTE | 2017-08-02 11:46 | HHI.IDPN ---
Subjective Subjective Remarks is a 71 y/o AAM with PMHx of CVA, HTN, HLD, DM, prostate cancer history , glaucoma who was transferred here from [facility]. The patient states he came to the ED here about a month ago and was found to have some masses around his thigh and scrotum. [facility] for this and was seen by urology with I&D of the peritoneum, 2 pubic masses removed, and drains placed (now removed); perineal infection was thought to be related to retained fragments of previous urethral sling that was removed in 2008. He was transferred to [facility] for treatment of MRSA bacteremia and was treated with IV daptomycin. He was then transferred to [facility] for orthopedic evaluation for possible osteomyelitis of the acetabulum seen on MRI. Orthopedics evaluated the patient at [facility] and determined no need for surgical intervention at the time. The patient was seen by ID and has been on IV vancomycin and cefepime awaiting cultures from [facility]. The PICC line is placed, the patient will likely need 6-8 weeks of IV antibiotics. Per hospital discharge summary the plan was to transfer [place] as this is where the patient lives and to de-escalate IV antibiotics based on culture results. Patient's at bedside state that he is here because he lives in [facility] and the plan is to do IV antibiotics at home, awaiting arrangement. The patient initially presented with right leg and thigh pain from the infection, which she states has improved. He denies any fevers or chills. They do state that he had 2 echocardiograms and a SOMMER and deny any signs of heart infection. Upon review of medical records no microbiology cultures on chart, no ID note in chart. Unsure what cultures were being treated as pt was on Dapto at one point. Would like to know Vanco LINDSAY on MRSA cultures in blood. Gave a list of items needed from outside hospital to help formulate an ID plan. Need Micro, path, radiology, ID notes, discharge notes, procedure or surgery notes if any. Cheryl Wallis who has requested these to be obtained from hospitals he has been at. Patient reports a PICC line was placed 2 days prior to his discharge from [facility] hospital. He reports using a walker at baseline prior to all the infectious process started. Evaluation and Mment of Osteomyelitis right hip, pubuc ramus abscess, abscess right thigh, MRSA bacteremia. Pt transferred from [facility]. Overnight events reviewed No fever No rash No diarrhea Antibiotics I attest I reviewed, obtained or updated patients home meds and current meds. Reported Meds & Active Scripts Active Percocet (Oxycodone-Acetaminophen) 5-325 mg Tab 1-2 Tab PO Q6H PRN Tramadol (Tramadol HCl) 50 Mg Tab 50 Mg PO Q8H PRN Reported Vanco 1.25 gm/250 ml-0.9% NaCl (Vancomycin/0.9 % Sod Chloride) 1.25 Gram/250 Ml Plast..bag IV BID Timolol Opth Drops 0.5 % Soln 1 Drop EACH EYE BID Dakins Solution Quarter Strength Topical (Sodium Hypochlorite Topical) 0.125% Soln 473 Ml TOPICAL BID Latanoprost Opth Drops (Latanoprost) 0.005% Drops 1 Drop EACH EYE HS Refrigerate until opened. Acidophilus Lactobacilli (Lactobacillus Acidophilus) 500 Million Cell Capsule 1 Cap PO BID Lantus Inj (Insulin Glargine) 1,000 Unit/10 Ml Vial 20 Units SQ HS Folic Acid 0.4 Mg Tab 400 Mcg PO DAILY Enoxaparin Inj (Enoxaparin Sodium) 40 Mg/0.4 Ml Syr 40 Mg SQ DAILY Dorzolamide Opth Drops (Dorzolamide HCl) 2% Soln 1 Drop RIGHT EYE BID Colace Clear (Docusate Sodium) 50 Mg Cap Cap PO BID Cefepime Inj (Cefepime HCl) 2 Gm/100 Ml Bagp 2 Gm IV Q8H Brimonidine Opth Drops (Brimonidine Tartrate) 0.2% Soln 1 Drop EACH EYE TID Atorvastatin (Atorvastatin Calcium) 20 Mg Tab 20 Mg PO HS Aspirin 81 Mg Chew 81 Mg CHEW DAILY Amlodipine (Amlodipine Besylate) 5 Mg Tab 5 Mg PO DAILY Forks (Hydrocodone-Acetaminophen) 5-325 mg Tab 1 Tab PO Q6H PRN Mapap (Acetaminophen) 325 Mg Tab 325 Mg PO Q4-6H Aspirin 81 Mg Chew 81 Mg CHEW DAILY Amlodipine (Amlodipine Besylate) 5 Mg Tab 5 Mg PO DAILY Lantus Inj (Insulin Glargine) 1,000 Unit/10 Ml Vial 30 Units SQ HS Current Medications Medications (Trade) Dose Ordered Sig/Caitlyn Route Start Time Stop Time Status Last Admin (NS Flush) 2 ml UNSCH PRN IV FLUSH 07/28/17 04:30 07/29/17 06:15 (NS Flush) 2 ml BID IV FLUSH 07/28/17 09:00 08/02/17 10:28 (Narcan Inj) 0.4 mg UNSCH PRN IV PUSH 07/28/17 04:30 (Norvasc) 5 mg DAILY PO 07/28/17 09:00 08/02/17 10:28 (Aspirin Chew) 81 mg DAILY CHEW 07/28/17 09:00 08/02/17 10:29 (Lipitor) 20 mg HS PO 07/28/17 21:00 08/01/17 20:15 (Alphagan 0.2% Opth Soln) 1 drop TID EACH EYE 07/28/17 10:00 07/31/17 12:17 (Trusopt 2% Opth Soln) 1 drop BID RIGHT EYE 07/28/17 10:00 08/01/17 20:16 (Forks 5-325 Mg) 1 tab Q6H PRN PO 07/28/17 08:15 08/02/17 05:29 (Dakin'S 0.125% Soln) 500 ml BID TOPICAL 07/28/17 10:00 08/02/17 10:59 (Timoptic 0.5% Opth Soln) 1 drop BID EACH EYE 07/28/17 10:00 08/01/17 20:16 (Lactinex) 1 tab BID PO 07/28/17 09:30 08/02/17 10:27 (D50w (Vial) Inj) 50 ml UNSCH PRN IV PUSH 07/28/17 08:15 (Glucagon Inj) 1 mg UNSCH PRN OTHER 07/28/17 08:15 (Lovenox Inj) 40 mg Q24H SQ 07/28/17 11:00 08/02/17 10:32 Pharmacy Profile Note 0 ml @ 0 mls/hr UNSCH OTHER 07/28/17 09:30 Cefepime HCl 2000 mg/Sodium Chloride 100 ml @ 200 mls/hr Q8H IV 07/28/17 14:00 08/02/17 05:25 (Levemir Inj) 5 units HS SQ 07/30/17 21:00 08/01/17 20:16 (NovoLOG SUPPLEMENTAL SCALE) 1 ACHS SLIDING SCALE SQ 07/31/17 12:00 07/31/17 22:21 Vancomycin HCl 1000 mg/Sodium Chloride 250 ml @ 250 mls/hr Q18H IV 08/02/17 09:00 08/02/17 10:45 Miscellaneous Information SPECIFIC LAB TO BE DRAWN:VANCOMY... ONCE ONCE .XX 08/04/17 14:45 08/04/17 14:46 Lines Line sites with no e.o infection Past Medical History CVA Hypertension Hyperlipidemia History of prostate cancer in 2000 Diabetes mellitus Glaucoma Prostate surgery and bladder sling placement and removal Right thigh and perineum drainage tubes placed and removed recently 2 peroneal masses removed recently Allergies: Coded Allergies: No Known Allergies (Verified , 06/30/17) Objective . Vital Signs Date Time Temp Pulse Resp B/P (MAP) Pulse Ox O2 Delivery O2 Flow Rate FiO2 08/02/17 08:30 97.2 75 20 96 08/02/17 06:29 18 08/02/17 05:47 98.1 75 18 134/80 (98) 99 08/01/17 20:29 98.4 67 18 134/72 (92) 97 08/01/17 15:04 98.9 87 17 131/75 (93) 98 . Laboratory Tests Test 07/31/17 13:21 08/01/17 08:13 Creatinine 0.72 MG/DL 0.70 MG/DL Estimat Glomerular Filtration Rate 130 ML/MIN 134 ML/MIN Imaging None Physical Exam GENERAL: thin built AAM, well-developed patient, in no apparent distress. SKIN: No rashes, ecchymoses or lesions. Cool and dry. HEAD: Atraumatic. Normocephalic. No temporal or scalp tenderness. EYES: Pupils equal round and reactive. Extraocular motions intact. No scleral icterus. No injection or drainage. ENT: Nose without bleeding, purulent drainage or septal hematoma. Throat without erythema, tonsillar hypertrophy or exudate. Uvula midline. Airway patent. NECK: Trachea midline. Supple, nontender, no meningeal signs. CARDIOVASCULAR: Regular rate and rhythm without murmurs, gallops, or rubs. RESPIRATORY: Clear to auscultation. Breath sounds equal bilaterally. No wheezes , rales, or rhonchi. GASTROINTESTINAL: Abdomen soft, non-tender, nondistended. MUSCULOSKELETAL: Right thigh with linear scar with sutures on the inner thigh aspect. He has a small opening on the under side of his scrotum with small amount of packing noted. NEUROLOGICAL: Awake and alert. No obvious neuro deficit noted. Psych cooperative PICC site with no e.o infection. Assessment & Plan Remarks Osteomyelitis of right hip s/p aspiration Abscess of right thigh/Infective myositis Pubic ramus abscess MRSA bacteremia at outside hospital. No endocarditis per reports or pt account of ECHO and SOMMER being negative. Prostate cancer PICC in place, placed at [facility]. Recs Continue Cefepime IV Continue Vanco IV (target 15-20) Outside hospital records reviewed. Post hospital infusion orders completed and in chart. Follow clinically. d/w RN, case management assistant cheryl Bruno RN at [facility] clinic she informs me the ID doctor at [place] will take over care of IV antibiotics post discharge. Will sign off please call back if any change in clinical condition or questions. Mariangel Haider MD Aug 02, 2017 11:46
[2017-08-02 16:15] VITALS: BP 139/80; PULSE 72; RESP 16; TEMP 98; O2SAT 99
[2017-08-02 20:07] VITALS: BP 129/73; PULSE 87; RESP 19; TEMP 98.8; O2SAT 98
[2017-08-02] MEDS: INSULIN DETEMIR 100 UNITS/ML VIAL SQ SCH (21:50)
[2017-08-02] MEDS: ATORVASTATIN 20 MG TAB PO SCH (21:50)
[2017-08-03 00:35] VITALS: BP 131/80; PULSE 76; RESP 19; TEMP 97.8; O2SAT 98
[2017-08-03] MEDS: VANCOMYCIN 1,000 MG/NS 250 ML IV SCH ×4 (03:01→20:46)
[2017-08-03] MEDS: CEFEPIME 2000 MG/NS 100 ML IV SCH ×6 (05:42→22:17)
[2017-08-03 08:00] VITALS: BP 123/88; PULSE 78; RESP 18; TEMP 98.8; O2SAT 97
[2017-08-03] MEDS: INSULIN ASPART SUPPLEMENTAL SCALE SQ SCH ×4 (08:00→20:47)
[2017-08-03] MEDS: SODIUM HYPOCHLORITE 0.125% 500 ML BTL TOPICAL SCH ×2 (09:00→21:09)
[2017-08-03] MEDS: BRIMONIDINE TARTRATE 0.2% OPHT SOLN 5 ML BTL EACH EYE SCH ×3 (09:00→18:00)
[2017-08-03] MEDS: SODIUM CHLORIDE 0.9% FLUSH 10 ML FLUSH IV FLUSH SCH ×2 (09:00→20:47)
[2017-08-03] MEDS: DORZOLAMIDE 2% OPTH SOLN 200 DROP/10 ML BTLO RIGHT EYE SCH ×2 (09:00→21:00)
[2017-08-03] MEDS: TIMOLOL MALEATE 0.5% OPHT SOLN 5 ML BTL EACH EYE SCH ×2 (09:00→21:00)
[2017-08-03] MEDS: ASPIRIN 81 MG CHEW TAB CHEW SCH (09:32)
[2017-08-03] MEDS: amLODIPine BESYLATE 5 MG TAB PO SCH (09:32)
[2017-08-03] MEDS: LACTOBACILLUS ACIDOPHILUS TAB PO SCH ×2 (09:32→20:45)
[2017-08-03] MEDS: ENOXAPARIN SODIUM 40 MG/0.4 ML SYRINGE SQ SCH (09:33)
[2017-08-03 12:15] VITALS: BP 136/79; PULSE 83; RESP 18; TEMP 98.9; O2SAT 98
--- NOTE | 2017-08-03 14:49 | HHI.PR ---
Addendum to Inpatient Note Addendum Reason: Additional Documentation Additional Information I was asked to call Dr Tra Morocho [phone] Office no [phone]. does not feel comfortable with the regimen provided by ID at [facility]. He does not think pt can handle 4 times a day IV antibiotic regimen. Pt has refused to go to SNF in past. At this point, I need the following: ID note from [facility] with name and contact information for them so I can share this number with at [place] to discharge this patient. At this point the [place] ID MD does not seem agreeable to discharge with this plan although this can be fine tuned as outpatient. I will marquise Photographer Assistant about this. Marquise Kruse about above. Mariangel Haider MD Aug 03, 2017 14:49
[2017-08-03 16:03] VITALS: BP 153/88; PULSE 89; RESP 18; TEMP 99.2; O2SAT 99
[2017-08-03 19:43] VITALS: BP 117/75; PULSE 88; RESP 16; TEMP 98.9; O2SAT 98
[2017-08-03] MEDS: ATORVASTATIN 20 MG TAB PO SCH (20:45)
[2017-08-03] MEDS: ACETAMINOPHEN/HYDROcodone 325 MG/5 MG TAB PO PRN (20:46)
[2017-08-03] MEDS: INSULIN DETEMIR 100 UNITS/ML VIAL SQ SCH (20:47)
[2017-08-03 23:19] VITALS: BP 130/81; PULSE 73; RESP 17; TEMP 98.7; O2SAT 98
[2017-08-04 02:59] VITALS: BP 144/81; PULSE 85; RESP 18; TEMP 98.5; O2SAT 98
[2017-08-04] MEDS: CEFEPIME 2000 MG/NS 100 ML IV SCH ×6 (05:46→22:19)
[2017-08-04] MEDS: INSULIN ASPART SUPPLEMENTAL SCALE SQ SCH ×4 (08:00→22:23)
[2017-08-04 08:02] VITALS: BP 143/81; PULSE 82; RESP 22; TEMP 97.6; O2SAT 98
[2017-08-04] MEDS: DORZOLAMIDE 2% OPTH SOLN 200 DROP/10 ML BTLO RIGHT EYE SCH ×3 (09:00→22:38)
[2017-08-04] MEDS: BRIMONIDINE TARTRATE 0.2% OPHT SOLN 5 ML BTL EACH EYE SCH ×3 (09:00→17:49)
[2017-08-04] MEDS: TIMOLOL MALEATE 0.5% OPHT SOLN 5 ML BTL EACH EYE SCH ×2 (09:00→21:00)
[2017-08-04] MEDS: amLODIPine BESYLATE 5 MG TAB PO SCH (09:34)
[2017-08-04] MEDS: LACTOBACILLUS ACIDOPHILUS TAB PO SCH ×2 (09:35→22:21)
[2017-08-04] MEDS: ASPIRIN 81 MG CHEW TAB CHEW SCH (09:35)
[2017-08-04] MEDS: SODIUM CHLORIDE 0.9% FLUSH 10 ML FLUSH IV FLUSH SCH ×2 (09:35→22:20)
[2017-08-04] MEDS: SODIUM HYPOCHLORITE 0.125% 500 ML BTL TOPICAL SCH ×2 (09:36→22:24)
[2017-08-04 11:54] VITALS: BP 130/84; PULSE 94; RESP 24; TEMP 99.2; O2SAT 100
[2017-08-04] MEDS: ENOXAPARIN SODIUM 40 MG/0.4 ML SYRINGE SQ SCH (12:38)
--- NOTE | 2017-08-04 14:08 | HHI.PR ---
Objective Vitals Vital Signs Date Time Temp Pulse Resp B/P (MAP) Pulse Ox O2 Delivery O2 Flow Rate FiO2 08/04/17 11:54 99.2 94 24 130/84 (99) 100 08/04/17 08:02 97.6 82 22 143/81 (101) 98 08/04/17 02:59 98.5 85 18 144/81 (102) 98 08/03/17 23:19 98.7 73 17 130/81 (97) 98 08/03/17 22:00 18 08/03/17 19:43 98.9 88 16 117/75 (89) 98 08/03/17 16:03 99.2 89 18 153/88 (109) 99 I/O 08/03/17 08/03/17 08/03/17 08/04/17 08/04/17 08/04/17 07:00 15:00 23:00 07:00 15:00 23:00 Intake Total 250 ml 200 ml Balance 250 ml 200 ml IV Total 250 ml 200 ml Result Diagram: 08/04/17 0711 Objective Remarks GENERAL: Alert, oriented 3, NAD. SKIN: Warm and dry. Open lesion below the scrotum with no signs of infection. Sutures in place on areas of previous drains on the right thigh. HEAD: Normocephalic. EYES: No scleral icterus. No injection or drainage. NECK: Supple, trachea midline. No JVD or lymphadenopathy. CARDIOVASCULAR: Regular rate and rhythm without murmurs, gallops, or rubs. RESPIRATORY: Breath sounds equal bilaterally. No accessory muscle use. GASTROINTESTINAL: Abdomen soft, non-tender, nondistended. MUSCULOSKELETAL: No cyanosis, or edema. BACK: Nontender without obvious deformity. No CVA tenderness. Procedures None A/P Problem List: (1) Right leg pain ICD Code: M79.604 - Pain in right leg Status: Acute (2) DM (diabetes mellitus) ICD Code: E11.9 - Type 2 diabetes mellitus without complications (3) Hip osteomyelitis ICD Code: M86.9 - Osteomyelitis, unspecified (4) Perineal abscess ICD Code: L02.215 - Cutaneous abscess of perineum (5) MRSA bacteremia ICD Code: R78.81 - Bacteremia (6) Pubic ramus osteomyelitis Assessment and Plan 71-year-old male with a past medical history of CVA, HTN, HLD, DM, prostate cancer history, glaucoma who was transferred here from [facility] after prolonged hospitalization with complex right thigh and perineal infection. S/P right thigh myositis, abscess, right hip septic arthritis and osteomyelitis. History of recent MRSA bacteremia. No report of positive wound cultures. -Attempt to obtain recent culture results -Repeat blood cultures -Patient has been on IV antibiotics with vancomycin and cefepime, continue for now -Consult ID for transition to home IV antibiotics based on culture results -Labs reviewed. Perineal wound: Has been seen by wound care physician at previous hospitalization. -Continue dressings with Dakin solution -Consult dipper machine operator -Continue pain control with [place] Diabetes mellitus: -Continue home Levemir 10 units QHS. -Monitor Accu-Cheks and cover with SSI as needed Other chronic medical conditions include HTN, HLD, CVA: -Continue home antihypertensives, statin, and aspirin DVT prophylaxis: Lovenox Discussed with Dr. Haider. We do have some of the documents from [facility]. We will specifically request records related to microbiology, pathology, imaging, surgery or procedure notes, infectious disease notes and discharge summary as well as admission note. 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
[2017-08-04] MEDS ORDERED: PHARMACY ORDERED LAB ONE (14:45)
[2017-08-04] MEDS: VANCOMYCIN 1,000 MG/NS 250 ML IV SCH ×2 (15:03)
--- NOTE | 2017-08-04 15:19 | HHI.PR ---
Subjective Remarks Follow-up for right sided thigh myositis, abscess, right hip septic arthritis and osteomyelitis, perineum wound. Currently doing well. No fever or chills. Patient ideally would like to go home. Objective Vitals Vital Signs Date Time Temp Pulse Resp B/P (MAP) Pulse Ox O2 Delivery O2 Flow Rate FiO2 08/04/17 11:54 99.2 94 24 130/84 (99) 100 08/04/17 08:02 97.6 82 22 143/81 (101) 98 08/04/17 02:59 98.5 85 18 144/81 (102) 98 08/03/17 23:19 98.7 73 17 130/81 (97) 98 08/03/17 22:00 18 08/03/17 19:43 98.9 88 16 117/75 (89) 98 08/03/17 16:03 99.2 89 18 153/88 (109) 99 I/O 08/03/17 08/03/17 08/03/17 08/04/17 08/04/17 08/04/17 07:00 15:00 23:00 07:00 15:00 23:00 Intake Total 250 ml 200 ml Balance 250 ml 200 ml IV Total 250 ml 200 ml Result Diagram: 08/04/17 0711 Objective Remarks GENERAL: Alert, oriented 3, NAD. SKIN: Warm and dry. Open lesion below the scrotum with no signs of infection. Sutures in place on areas of previous drains on the right thigh. HEAD: Normocephalic. EYES: No scleral icterus. No injection or drainage. NECK: Supple, trachea midline. No JVD or lymphadenopathy. CARDIOVASCULAR: Regular rate and rhythm without murmurs, gallops, or rubs. RESPIRATORY: Breath sounds equal bilaterally. No accessory muscle use. GASTROINTESTINAL: Abdomen soft, non-tender, nondistended. MUSCULOSKELETAL: No cyanosis, or edema. BACK: Nontender without obvious deformity. No CVA tenderness. Procedures None A/P Problem List: (1) Right leg pain ICD Code: M79.604 - Pain in right leg Status: Acute (2) DM (diabetes mellitus) ICD Code: E11.9 - Type 2 diabetes mellitus without complications (3) Hip osteomyelitis ICD Code: M86.9 - Osteomyelitis, unspecified (4) Perineal abscess ICD Code: L02.215 - Cutaneous abscess of perineum (5) MRSA bacteremia ICD Code: R78.81 - Bacteremia (6) Pubic ramus osteomyelitis Assessment and Plan 71-year-old male with a past medical history of CVA, HTN, HLD, DM, prostate cancer history, glaucoma who was transferred here from [facility] after prolonged hospitalization with complex right thigh and perineal infection. S/P right thigh myositis, abscess, right hip septic arthritis and osteomyelitis. History of recent MRSA bacteremia. No reports available of previous wound cultures. -Repeat blood cultures with NGTD -Patient has been on IV antibiotics with vancomycin and cefepime, continue for now -ID consulted for assistance with transition to home IV antibiotics based on culture results. -ID provided discharge recommendations and signed off. [place] ID doctor disagrees with the discharge plan. We are trying to get records from [facility] ID doctor. -Continue attempts to obtain recent culture data Perineal wound: Has been seen by wound care physician at previous hospitalization. -Consulted golf ball cover treater, discussed with, continue local wound care and dressings with Dakin solution -Continue pain control with [place] Diabetes mellitus: With episodes of a.m. hypoglycemia. Patient reports this is because he has not been getting an evening snack. Insulin decreased and blood sugars better with no hypoglycemia. -Evening snack and diabetic diet -Previous on Lantus 30 units at night. Decreased Levemir to 5 units at night for now until a.m. hypoglycemia improves. -Hemoglobin A1c 10.5 -Monitor Accu-Cheks and cover with SSI as needed Other chronic medical conditions include HTN, HLD, CVA: -Continue home antihypertensives, statin, and aspirin DVT prophylaxis: Lovenox Problem Qualifiers (1) DM (diabetes mellitus): Qualified Codes: E11.628 - Type 2 diabetes mellitus with other skin complications; Z79.4 - retirement (current) use of insulin Eliel Dozier DO Aug 04, 2017 3:19 pm
--- NOTE | 2017-08-04 15:30 | RADRPT ---
EXAM DATE/TIME: 08/04/2017 15:15 This report includes an Addendum and supersedes previous reports for this exam. [facility] COMPARISON: No previous studies available for comparison. INDICATIONS : Picc line placement MEDICAL HISTORY : Hypertension. CVA SURGICAL HISTORY : None. ENCOUNTER: Initial ACUITY: 1 day PAIN SCORE: 0/10 LOCATION: Bilateral chest FINDINGS: A single view of the chest demonstrates the lungs to be symmetrically aerated without evidence of mas s, infiltrate or effusion. The cardiomediastinal contours are unremarkable. Osseous structures are intact. CONCLUSION: No acute disease. Bandar Patricio MD on August 04, 2017 at 15:28 Board Certified Radiologist. This report was verified electronically. ADDENDUM: A right-sided PICC line has its tip in good position in the superior vena cava. Raman Domínguez MD on August 04, 2017 at 16:20 Board Certified Radiologist. This report was verified electronically.
[2017-08-04] MEDS: ACETAMINOPHEN/HYDROcodone 325 MG/5 MG TAB PO PRN (17:50)
[2017-08-04 20:05] VITALS: BP 110/66; PULSE 87; RESP 17; TEMP 98.9; O2SAT 97
[2017-08-04] MEDS: ATORVASTATIN 20 MG TAB PO SCH (22:21)
[2017-08-04] MEDS: INSULIN DETEMIR 100 UNITS/ML VIAL SQ SCH (22:22)
[2017-08-04 22:48] VITALS: BP 126/79; PULSE 79; RESP 16; TEMP 98.1; O2SAT 98
[2017-08-05] MEDS: ACETAMINOPHEN/HYDROcodone 325 MG/5 MG TAB PO PRN ×2 (01:04→05:58)
[2017-08-05 03:19] VITALS: BP 119/68; PULSE 81; RESP 16; TEMP 98.3; O2SAT 98
[2017-08-05] MEDS: CEFEPIME 2000 MG/NS 100 ML IV SCH ×4 (05:12→13:09)
[2017-08-05] MEDS ORDERED: VANCOMYCIN INJ 1,500 MG in SODIUM CHLORID 0.9% 500 ML INJ 500 ML IV SCH (06:00)
[2017-08-05] MEDS: INSULIN ASPART SUPPLEMENTAL SCALE SQ SCH ×2 (07:56→12:11)
[2017-08-05 08:21] VITALS: BP 117/77; PULSE 69; RESP 18; TEMP 98.9; O2SAT 98
[2017-08-05] MEDS: SODIUM CHLORIDE 0.9% FLUSH 10 ML FLUSH IV FLUSH SCH (09:00)
[2017-08-05] MEDS: ASPIRIN 81 MG CHEW TAB CHEW SCH (09:20)
[2017-08-05] MEDS: LACTOBACILLUS ACIDOPHILUS TAB PO SCH (09:20)
[2017-08-05] MEDS: amLODIPine BESYLATE 5 MG TAB PO SCH (09:20)
[2017-08-05] MEDS: BRIMONIDINE TARTRATE 0.2% OPHT SOLN 5 ML BTL EACH EYE SCH ×2 (09:22→13:00)
[2017-08-05] MEDS: DORZOLAMIDE 2% OPTH SOLN 200 DROP/10 ML BTLO RIGHT EYE SCH (09:24)
[2017-08-05] MEDS: TIMOLOL MALEATE 0.5% OPHT SOLN 5 ML BTL EACH EYE SCH (09:25)
[2017-08-05] MEDS: SODIUM HYPOCHLORITE 0.125% 500 ML BTL TOPICAL SCH (09:27)
[2017-08-05] MEDS: ENOXAPARIN SODIUM 40 MG/0.4 ML SYRINGE SQ SCH (12:11)
--- NOTE | 2017-08-05 18:23 | HHI.DS ---
Discharge Summary Admission Date Jul 28, 2017 at 03:00 Discharge Date: Aug 05, 2017 Admitting Diagnosis Right thigh, perineal infection. (1) Right leg pain ICD Code: M79.604 - Pain in right leg Status: Acute (2) DM (diabetes mellitus) ICD Code: E11.9 - Type 2 diabetes mellitus without complications (3) Hip osteomyelitis ICD Code: M86.9 - Osteomyelitis, unspecified (4) Perineal abscess ICD Code: L02.215 - Cutaneous abscess of perineum (5) MRSA bacteremia ICD Code: R78.81 - Bacteremia (6) Pubic ramus osteomyelitis Procedures None Brief History - From Admission 71-year-old male with a past medical history of CVA, HTN, HLD, DM, prostate cancer history, glaucoma who was transferred here from [facility]. The patient states he went to the ED here about a month ago and was found to have some masses around his thigh and scrotum. [facility] and was seen by urology with I&D of the peritoneum, 2 pubic masses removed, and drains placed(now removed); perineal infection was thought to be related to retained fragments of previous urethral sling that was removed in 2008. He was transferred to [facility] for treatment of MRSA bacteremia and was treated with IV daptomycin. He was then transferred to [facility] for orthopedic evaluation for possible osteomyelitis of the acetabulum seen on MRI. Orthopedics evaluated the patient at [facility] and determined no need for surgical intervention at the time. The patient was seen by ID and has been on IV vancomycin and cefepime awaiting cultures from [facility]. The PICC line is placed, the patient will likely need 6-8 weeks of IV antibiotics. Per hospital discharge summary the plan was to transfer [place] as this is where the patient lives and to de-escalate IV antibiotics based on culture results. Patient's at bedside state that he is here because he lives in [facility] and the plan is to do IV antibiotics at home, awaiting arrangement. The patient initially presented with right leg and thigh pain from the infection , which she states has improved. He denies any fevers or chills. They do state that he had 2 echocardiograms and a SOMMER and deny any signs of heart infection. CBC/BMP: 08/04/17 0711 Significant Findings Laboratory Tests Test 08/04/17 07:11 08/04/17 14:47 Vancomycin Level Trough 11.5 MCG/ML (5.0-10.0) Imaging Last Impressions Chest X-Ray 08/04/17 0000 Signed Impressions: Service Date/Time: Friday, August 04, 2017 15:15 - CONCLUSION: No acute disease. Bandar Patricio MD ADDENDUM: A right-sided PICC line has its tip in good position in the superior vena cava. Raman Domínguez MD PE at Discharge GENERAL: Well-developed well-nourished. In no acute distress. SKIN: Warm and dry. Open lesion below the scrotum with no signs of infection. Sutures removed from areas of previous drains on the right thigh. CARDIOVASCULAR: Regular rate and rhythm. No murmur appreciated. RESPIRATORY: No accessory muscle use. Clear to auscultation. Breath sounds equal bilaterally. GASTROINTESTINAL: Abdomen soft, non-tender, nondistended. Bowel sounds x4. MUSCULOSKELETAL: No obvious deformities. Right thigh with no induration, warmth , or tenderness. No clubbing or cyanosis. No edema. NEUROLOGICAL: Awake and alert. No focal neurological deficits. Moves upper and lower extremities spontaneously. Normal speech. PSYCHIATRIC: Appropriate mood and affect; insight and judgment normal. Pt update on day of discharge Patient is doing well. No fever, chills. Wants to go home. Hospital Course 71-year-old male with a past medical history of CVA, HTN, HLD, DM, prostate cancer history, glaucoma who was transferred here from [facility] after prolonged hospitalization with complex right thigh and perineal infection. S/P right thigh myositis, abscess, right hip septic arthritis and osteomyelitis. History of recent MRSA bacteremia. No reports available of previous wound cultures. -Repeat blood cultures with NGTD -Patient has been on IV antibiotics with vancomycin and cefepime, continue for now -ID consulted for assistance with transition to home IV antibiotics based on culture results. -ID provided discharge recommendations and signed off. CT ID doctor disagrees with the discharge plan. We are trying to get records from [facility] ID doctor. -Continue attempts to obtain recent culture data Perineal wound: Has been seen by wound care physician at previous hospitalization. -Consulted sodder, discussed with, continue local wound care and dressings with Dakin solution -Continue pain control with [place] Diabetes mellitus: With episodes of a.m. hypoglycemia. Patient reports this is because he has not been getting an evening snack. Insulin decreased and blood sugars better with no hypoglycemia. -Evening snack and diabetic diet -Previous on Lantus 30 units at night. Decreased Levemir to 5 units at night for now until a.m. hypoglycemia improves. -Hemoglobin A1c 10.5 -Monitor Accu-Cheks and cover with SSI as needed Other chronic medical conditions include HTN, HLD, CVA: -Continue home antihypertensives, statin, and aspirin DVT prophylaxis: Lovenox Briefly, Patient was transferred to [place] from [facility] to continue antibiotics due to right hip osteomyelitis, right thigh abscess. Patient was continued on Cefepime and Vancomycin which was continued on transfer. It was not clear why [facility] did not discharge patient home with home health with final antibiotics arrangements. ID consult was obtained at [place]. ID (Dr. Ronnie Haider) recommended 6 weeks of Cefepime and Vancomycin. However, CT ID physician thought that this regimen would not be feasible for the patient and thus recommended against discharge. We spent considerable time to coordinate with ID physicians from [facility], [place] and [place]. Eventually , CT arranged patient to go home with Daptomycin IV Q24 hours and Levaquin PO. This recommendation was based on CT ID physician input - NOT Dr. Haider (ID, [place]). Patient was subsequently discharged home. [facility] Pt Condition on Discharge: Stable Discharge Disposition: Discharge Home Discharge Time: > 30 minutes Discharge Instructions DIET: Follow Instructions for: Heart Healthy Diet Activities you can perform: Regular-No Restrictions Follow up Referrals: Appointment for Follow Up - 1 Week @ [facility] with ID physician at [facility] or [phone] Per RODRIGO Bruno at [facility]. PCP Follow-up - 1 Week with [facility] Continued Medications: Acetaminophen (Mapap) 325 Mg Tab 325 MG PO Q4-6H, #2 TAB 0 Refills Amlodipine (Amlodipine) 5 Mg Tab 5 MG PO DAILY for Blood Pressure Management, #30 TAB 0 Refills Aspirin (Aspirin) 81 Mg Chew 81 MG CHEW DAILY, TAB 0 Refills Atorvastatin (Atorvastatin) 20 Mg Tab 20 MG PO HS for Cholesterol Management, #30 TAB 0 Refills Brimonidine Opth Drops (Brimonidine Opth Drops) 0.2% Soln 1 DROP EACH EYE TID for Intraocular pressure, #1 BOTTLE 0 Refills Docusate Sodium (Colace Clear) 50 Mg Cap CAP PO BID for Constipation Dorzolamide Opth Drops (Dorzolamide Opth Drops) 2% Soln 1 DROP RIGHT EYE BID for Glaucoma, #1 BOTTLE 0 Refills Enoxaparin Inj (Enoxaparin Inj) 40 Mg/0.4 Ml Syr 40 MG SQ DAILY for Blood Clot Prevention, SYRINGE 0 Refills Folic Acid (Folic Acid) 0.4 Mg Tab 400 MCG PO DAILY for Nutritional Supplement, TAB 0 Refills Insulin Glargine Inj (Lantus Inj) 1,000 Unit/10 Ml Vial 30 UNITS SQ HS for Blood Sugar Management, VIAL 0 Refills Lactobacillus Acidophilus (Acidophilus Lactobacilli) 500 Million Cell Capsule 1 CAP PO BID Latanoprost Opth Drops (Latanoprost Opth Drops) 0.005% Drops 1 DROP EACH EYE HS for Glaucoma, #2.5 ML 0 Refills Refrigerate until opened. Oxycodone-Acetaminophen (Percocet) 5-325 mg Tab 1-2 TAB PO Q6H PRN for PAIN, #10 TAB 0 Refills Sodium Hypochlorite Topical (Dakins Solution Quarter Strength Topical) 0.125% Soln 473 ML TOPICAL BID for Infection, ML 0 Refills Timolol Opth Drops (Timolol Opth Drops) 0.5 % Soln 1 DROP EACH EYE BID for Glaucoma, #1 BOTTLE 0 Refills Discontinued Medications: Cefepime Inj (Cefepime Inj) 2 Gm/100 Ml Bagp 2 GM IV Q8H for Infection, BAG 0 Refills Vancomycin/0.9 % Sod Chloride (Vanco 1.25 gm/250 ml-0.9% NaCl) 1.25 Gram/250 Ml Plast..bag IV BID for Infection Eliel Dozier DO Aug 05, 2017 18:23
[2017-08-07] MEDS ORDERED: PHARMACY ORDERED LAB ONE (11:45)
== END 2017-08-05 14:56 | disposition home health service (06) ==
LOC: NEPHCDU 07-28 03:00 → INTOOBSV 07-28 03:00
PROVIDERS: ADMIT Hospitalist; ATTEND Hospitalist
DX: L02.215 Cutaneous abscess of perineum (principal); L02.415 Cutaneous abscess of right lower limb; R78.81 Bacteremia; B95.62 Methicillin resistant Staphylococcus aureus infection as the cause of diseases classified elsewhere; E11.9 Type 2 diabetes mellitus without complications; I10 Essential (primary) hypertension; M60.051 Infective myositis, right thigh; M00.9 Pyogenic arthritis, unspecified; N49.2 Inflammatory disorders of scrotum; M86.9 Osteomyelitis, unspecified; E11.69 Type 2 diabetes mellitus with other specified complication; E78.5 Hyperlipidemia, unspecified; C61 Malignant neoplasm of prostate; Z79.4 Long term (current) use of insulin; Z79.82 Long term (current) use of aspirin; Z86.73 Personal history of transient ischemic attack (TIA), and cerebral infarction without residual deficits
CPT/HCPCS: 71010; 80048; 80202; 82565; 82948; 83036; 85025; 87040; 96365; 96366; 96372; G0378; J0692; J1650; J1815; J3370; J7040; J7050; 99281